=== PATIENT | male | born 1955 | race Two or more races ===

== ENCOUNTER 2023-02-07 07:13 | Inpatient (IN) | payer OTHER, MEDICAID ==
[~2023-02-07] VITALS: Ht 198.1 cm; Wt 98.0 kg
[2023-02-07 08:54] LABS: Urine Bacteria NONE SEEN /hpf (None Seen); Urine Blood 1+ /uL (Negative); Urine Hyaline Cast FEW /lpf (0 - 2); Urine Mucus FEW (None Seen); Urine Specific Gravity 1.026 (1.001-1.035); Urine WBC 4 /hpf (0 - 3)
[2023-02-07 09:17] LABS: Basophils # (auto) 0.1 10 ^3/uL (0-0.2); Basophils % (auto) 1.1 % (0.0-2.0); Eosinophils # (auto) 0.3 10 ^3/uL (0-0.8); Hematocrit 43.7 % (41.0-53.0); Hemoglobin 14.5 g/dL (13.5-17.5); Lymphocytes # (auto) 1.6 10 ^3/uL (0.4-5.4); Lymphocytes % (auto) 16.5 % (10.0-50.0); Mean Corpuscular Hemoglobin 28.4 pg (28.0-32.0); Mean Corpuscular Hgb Conc. 33.1 g/dL (32.0-36.0); Mean Corpuscular Volume 85.9 fL (80.0-100.0); Monocytes # (auto) 1.1 10 ^3/uL (0-1.3); Monocytes % (auto) 11.2 % (0.0-12.0); Neutrophils # (auto) 6.7 10 ^3/uL (1.6-8.6); Neutrophils % (auto) 68.2 % (37.0-80.0); Nucleated Red Blood Cells % 0.1 %; Red Blood Cells 5.09 10^6/uL (4.5-5.90); Red Cell Distribution Width 17.3 % (11.8-14.3); White Blood Cell 9.8 10^3/uL (4.4-10.8)
[2023-02-07 09:25] LABS: Alcohol, Urine < 3.0 mg/dL (0-10); Amphetamine Screen, Urine POSITIVE (NEGATIVE); Barbiturate Scree,Urine NEGATIVE (NEGATIVE); Benzodiazephine Screen, Urine NEGATIVE (NEGATIVE); Cannabinoid Screen, Urine POSITIVE (NEGATIVE)
[2023-02-07 09:34] LABS: INR 1.04 (0.9-1.15); Partial Thromboplastin Time 31.6 SEC (24.5-34.5)
[2023-02-07 09:43] LABS: Cocaine Screen, Urine NEGATIVE (NEGATIVE); Opiate Scree,Urine NEGATIVE (NEGATIVE); Phencyclidine Screen, Urine NEGATIVE (NEGATIVE)
[2023-02-07 09:45] LABS: Albumin 2.6 g/dL (3.4-5.0); Calcium 8.7 mg/dL (8.5-10.1); Potassium 3.1 mmol/L (3.5-5.1)
[2023-02-07 09:48] LABS: BUN/Creatinine Ratio 16.4 (10.0-20.0); Bilirubin, Total 0.8 mg/dL (0.2-1.0); Total Protein 8.5 g/dL (6.4-8.2)
[2023-02-07] MEDS ORDERED: PIPERACILLIN-TAZOB 3.375GM 100 ML IV ONE (10:00)
[2023-02-07] MEDS ORDERED: VANCOMYCIN 1GM/250ML 250 ML IV ONE (10:00)
[2023-02-07] MEDS ORDERED: VANCOMYCIN PER PHARMACY 0 MG IV SCH (12:45)
[2023-02-07] MEDS ORDERED: IPRATROPIUM BROM 0.5 MG/2.5ML INH SOL NEB PRN (12:45)
[2023-02-07] MEDS ORDERED: DOCUSATE SOD 100 MG CAP PO PRN (12:45)
[2023-02-07] MEDS ORDERED: ALBUTEROL SULF 2.5 MG/0.5ML(0.5%) NEB SOLN NEB PRN (12:45)
[2023-02-07] MEDS ORDERED: ONDANSETRON HCL 4 MG/2 ML VIAL IV PRN (12:45)
[2023-02-07] MEDS ORDERED: MORPHINE SULFATE INJ 2 MG/ml SYRG IV PRN (12:45)
[2023-02-07 18:00] VITALS: BP 108/76; PULSE 94; RESP 18; TEMP 97.3; O2SAT 97
[2023-02-07] MEDS: CEFEPIME 2GM/50ML NS 50 ML IV SCH (22:00)
[2023-02-08] MEDS: APIXABAN 5 MG TAB PO SCH ×3 (00:03→22:02)
[2023-02-08] MEDS: CEFEPIME 2GM/50ML NS 50 ML IV SCH ×4 (00:12→22:02)
[2023-02-08] MEDS: VANCOMYCIN 1GM/250ML 250 ML IV SCH ×4 (03:00→18:54)
[2023-02-08] MEDS ORDERED: MAALOX PLUS or MAALOX 30 ML PO ONE (04:15)
[2023-02-08 06:25] LABS: Basophils # (auto) 0.2 10 ^3/uL (0-0.2); Basophils % (auto) 1.5 % (0.0-2.0); Eosinophils # (auto) 0.5 10 ^3/uL (0-0.8); Eosinophils % (auto) 4.6 % (0.0-7.0); Hematocrit 44.9 % (41.0-53.0); Lymphocytes # (auto) 2.1 10 ^3/uL (0.4-5.4); Lymphocytes % (auto) 18.1 % (10.0-50.0); Mean Corpuscular Hemoglobin 28.4 pg (28.0-32.0); Mean Corpuscular Hgb Conc. 33.5 g/dL (32.0-36.0); Monocytes # (auto) 1.2 10 ^3/uL (0-1.3); Monocytes % (auto) 10.4 % (0.0-12.0); Neutrophils # (auto) 7.6 10 ^3/uL (1.6-8.6); Neutrophils % (auto) 65.4 % (37.0-80.0); Nucleated Red Blood Cells % 0.2 %; Red Blood Cells 5.28 10^6/uL (4.5-5.90); Red Cell Distribution Width 17.4 % (11.8-14.3); White Blood Cell 11.6 10^3/uL (4.4-10.8)
[2023-02-08 06:46] LABS: Potassium 3.5 mmol/L (3.5-5.1)
[2023-02-08 06:53] LABS: Albumin 2.9 g/dL (3.4-5.0); BUN/Creatinine Ratio 18.7 (10.0-20.0); Calcium 9.2 mg/dL (8.5-10.1)
[2023-02-08 07:14] LABS: Bilirubin, Total 0.6 mg/dL (0.2-1.0); Total Protein 9.1 g/dL (6.4-8.2)
[2023-02-08 07:25] VITALS: PULSE 72; RESP 16; O2SAT 98
[2023-02-08 09:30] VITALS: O2SAT 95
[2023-02-08] MEDS: POTASSIUM EFFERVESENT TAB 25 MEQ PO SCH (10:35)
[2023-02-08 15:37] VITALS: BP 140/82; PULSE 53; RESP 11; TEMP 97; O2SAT 95
[2023-02-08 15:51] VITALS: BP 124/73; PULSE 104; RESP 17; TEMP 98.1; O2SAT 92
[2023-02-08] MEDS ORDERED: APIX5TAB PO (16:05)
[2023-02-08] MEDS ORDERED: FURO1TAB31 PO (16:06)
[2023-02-08 17:04] VITALS: BP 136/64; PULSE 81; RESP 18; TEMP 98; O2SAT 93
[2023-02-08 20:00] VITALS: BP 103/72; PULSE 83; RESP 18; TEMP 97.6; O2SAT 94
[2023-02-09] VITALS (8 sets, daily range): BP systolic 101–123; BP diastolic 47–79; PULSE 57–94; RESP 16–20; TEMP 97.4–98.8; O2SAT 18–96
[2023-02-09] MEDS: VANCOMYCIN 1GM/250ML 250 ML IV SCH ×3 (02:57→17:51)
[2023-02-09] MEDS: CEFEPIME 2GM/50ML NS 50 ML IV SCH ×3 (06:13→21:30)
[2023-02-09] MEDS: APIXABAN 5 MG TAB PO SCH ×2 (08:32→21:30)
[2023-02-09] MEDS: POTASSIUM EFFERVESENT TAB 25 MEQ PO SCH ×2 (08:32→08:41)
[2023-02-09] MEDS: POTASSIUM CHL 20 Meq TABLET PO SCH (09:56)
[2023-02-09] MEDS: FUROSEMIDE 20 MG TAB PO SCH (09:56)
[2023-02-10 05:00] VITALS: BP 110/73; PULSE 73; RESP 19; TEMP 98.2; O2SAT 96
[2023-02-10] MEDS: CEFEPIME 2GM/50ML NS 50 ML IV SCH ×3 (06:00→21:58)
[2023-02-10 08:00] VITALS: BP 120/87; PULSE 55; RESP 17; TEMP 98.7; O2SAT 97
[2023-02-10 08:53] VITALS: BP 120/82; PULSE 55; RESP 17; TEMP 98.7; O2SAT 97
[2023-02-10] MEDS: APIXABAN 5 MG TAB PO SCH ×2 (10:32→21:34)
[2023-02-10] MEDS: FUROSEMIDE 20 MG TAB PO SCH (10:33)
[2023-02-10] MEDS: POTASSIUM CHL 20 Meq TABLET PO SCH (10:34)
[2023-02-10 14:15] VITALS: BP 115/90; PULSE 61; RESP 17; TEMP 97.6; O2SAT 98
[2023-02-10] MEDS ORDERED: LIDOCAINE 1% (LOCAL ANESTH.) PF 5ml SDV ID ONE (15:00)
[2023-02-10 20:00] VITALS: PULSE 61; RESP 18; O2SAT 98
[2023-02-10] MEDS: SODIUM CHLOR 0.9% PF (SALINE LOCK) 10ML VIAL/SYR IV SCH (21:35)
[2023-02-10 21:59] VITALS: BP 126/79; PULSE 100; RESP 18; TEMP 98.6; O2SAT 95
[2023-02-11 05:00] VITALS: BP 134/89; PULSE 90; RESP 20; TEMP 97.6; O2SAT 98
[2023-02-11] MEDS: CEFEPIME 2GM/50ML NS 50 ML IV SCH (05:10)
[2023-02-11] MEDS: SODIUM CHLOR 0.9% PF (SALINE LOCK) 10ML VIAL/SYR IV SCH ×2 (05:10→21:15)
[2023-02-11 06:46] LABS: BUN/Creatinine Ratio 15.5 (10.0-20.0); Calcium 8.4 mg/dL (8.5-10.1); Potassium 4.7 mmol/L (3.5-5.1)
[2023-02-11 09:00] VITALS: BP 154/85; PULSE 83; RESP 20; TEMP 98.3; O2SAT 98
[2023-02-11] MEDS: NICOTINE 21MG/24 HR TOPICAL PATCH TD SCH (10:00)
[2023-02-11] MEDS: CEFTRIAXONE SODIUM 2 GM in D5W 5% 100 ML IV SCH (12:39)
[2023-02-11] MEDS: APIXABAN 5 MG TAB PO SCH ×2 (12:39→21:14)
[2023-02-11] MEDS: FUROSEMIDE 20 MG TAB PO SCH (12:40)
[2023-02-11] MEDS: POTASSIUM CHL 20 Meq TABLET PO SCH (12:40)
[2023-02-11] MEDS: DAKINS QUARTER STR 0.125% (NaHypochlorite) 473 ML TOPICAL SOL TOP SCH (12:41)
[2023-02-11 13:00] VITALS: BP 119/77; PULSE 91; RESP 18; TEMP 97.8; O2SAT 96
[2023-02-11 17:00] VITALS: BP 140/83; PULSE 73; RESP 20; TEMP 98; O2SAT 96
[2023-02-11 20:00] VITALS: PULSE 89; RESP 18; O2SAT 92
[2023-02-11 20:22] LABS: Basophils # (auto) 0.3 10 ^3/uL (0-0.2); Eosinophils # (auto) 0.7 10 ^3/uL (0-0.8); Eosinophils % (auto) 5.3 % (0.0-7.0); Hematocrit 44.5 % (41.0-53.0); Hemoglobin 14.7 g/dL (13.5-17.5); Lymphocytes # (auto) 1.5 10 ^3/uL (0.4-5.4); Lymphocytes % (auto) 11.7 % (10.0-50.0); Mean Corpuscular Hemoglobin 28.4 pg (28.0-32.0); Mean Corpuscular Hgb Conc. 32.9 g/dL (32.0-36.0); Mean Corpuscular Volume 86.2 fL (80.0-100.0); Monocytes # (auto) 0.8 10 ^3/uL (0-1.3); Monocytes % (auto) 6.3 % (0.0-12.0); Neutrophils # (auto) 9.5 10 ^3/uL (1.6-8.6); Neutrophils % (auto) 74.7 % (37.0-80.0); Nucleated Red Blood Cells % 0.1 %; Red Blood Cells 5.16 10^6/uL (4.5-5.90); Red Cell Distribution Width 17.6 % (11.8-14.3); White Blood Cell 12.7 10^3/uL (4.4-10.8)
[2023-02-11 20:40] LABS: INR 1.09 (0.9-1.15)
[2023-02-11 22:00] VITALS: BP 119/72; PULSE 89; RESP 21; TEMP 98.7; O2SAT 92
[2023-02-12] VITALS (11 sets, daily range): BP systolic 114–151; BP diastolic 71–99; PULSE 61–88; RESP 13–20; TEMP 97.7–98.5; O2SAT 92–100
[2023-02-12] MEDS: DAKINS QUARTER STR 0.125% (NaHypochlorite) 473 ML TOPICAL SOL TOP SCH ×3 (02:05→22:00)
[2023-02-12] MEDS ORDERED: LIDOCAINE 2%HCL (LOCAL ANESTH.) INJ 20ML MDV ONE (08:14)
[2023-02-12] MEDS ORDERED: IODIXANOL 320MG/ML 100ML BTL IV ONE ×2 (08:14→08:57)
[2023-02-12] MEDS ORDERED: SODIUM CHL 0.9% 0 ML ONE (08:35)
[2023-02-12] MEDS ORDERED: MIDAZOLAM HCL 2MG/2ML 2ml VIAL (1mg/ml) ONE (08:35)
[2023-02-12] MEDS ORDERED: ANGIOMAX 250 MG VIAL IV ONE (08:35)
[2023-02-12] MEDS ORDERED: fentaNYL CITRATE 100 MCG/2 ML VL ONE (08:35)
[2023-02-12] MEDS: APIXABAN 5 MG TAB PO SCH ×2 (10:00→22:17)
[2023-02-12] MEDS: POTASSIUM CHL 20 Meq TABLET PO SCH (10:00)
[2023-02-12] MEDS: NICOTINE 21MG/24 HR TOPICAL PATCH TD SCH (10:00)
[2023-02-12] MEDS: FUROSEMIDE 20 MG TAB PO SCH (10:00)
[2023-02-12] MEDS: CEFTRIAXONE SODIUM 2 GM in D5W 5% 100 ML IV SCH (11:23)
[2023-02-12] MEDS: SODIUM CHLOR 0.9% PF (SALINE LOCK) 10ML VIAL/SYR IV SCH ×2 (11:23→23:26)
[2023-02-13 05:00] VITALS: BP 121/75; PULSE 87; RESP 18; TEMP 98.6; O2SAT 96
[2023-02-13 08:00] VITALS: RESP 20
[2023-02-13 08:50] VITALS: BP 123/81; PULSE 77; RESP 18; TEMP 98.6; O2SAT 93
[2023-02-13] MEDS: CEFTRIAXONE SODIUM 2 GM in D5W 5% 100 ML IV SCH (09:00)
[2023-02-13] MEDS: APIXABAN 5 MG TAB PO SCH (09:01)
[2023-02-13] MEDS: SODIUM CHLOR 0.9% PF (SALINE LOCK) 10ML VIAL/SYR IV SCH (09:01)
[2023-02-13] MEDS: POTASSIUM CHL 20 Meq TABLET PO SCH (09:01)
[2023-02-13] MEDS: FUROSEMIDE 20 MG TAB PO SCH (09:02)
[2023-02-13] MEDS: NICOTINE 21MG/24 HR TOPICAL PATCH TD SCH (09:09)
[2023-02-13] MEDS: DAKINS QUARTER STR 0.125% (NaHypochlorite) 473 ML TOPICAL SOL TOP SCH (10:00)
== END 2023-02-13 16:00 | DRG 602 ==
LOC: ER 07:13 → OVERFLOW 12:48 → CENTRAL 02-08 13:14
PROVIDERS: ADMIT Family Medicine; ATTEND Family Medicine
PROC: 02HV33Z Insertion of Infusion Device into Superior Vena Cava, Percutaneous Approach (ICD-10-PCS; principal; 2023-02-10)
PROC: B548ZZA Ultrasonography of Superior Vena Cava, Guidance (ICD-10-PCS; 2023-02-10)
PROC: B41GYZZ Fluoroscopy of Left Lower Extremity Arteries using Other Contrast (ICD-10-PCS; 2023-02-12)
PROC: B41FYZZ Fluoroscopy of Right Lower Extremity Arteries using Other Contrast (ICD-10-PCS; 2023-02-12)
DX: L03.115 Cellulitis of right lower limb (principal); I50.23 Acute on chronic systolic (congestive) heart failure; E44.1 Mild protein-calorie malnutrition; J44.1 Chronic obstructive pulmonary disease with (acute) exacerbation; I82.501 Chronic embolism and thrombosis of unspecified deep veins of right lower extremity; I42.9 Cardiomyopathy, unspecified; Z20.822 Contact with and (suspected) exposure to COVID-19; F12.10 Cannabis abuse, uncomplicated; E87.6 Hypokalemia; F17.210 Nicotine dependence, cigarettes, uncomplicated; F15.10 Other stimulant abuse, uncomplicated; I27.20 Pulmonary hypertension, unspecified; I70.201 Unspecified atherosclerosis of native arteries of extremities, right leg; L97.519 Non-pressure chronic ulcer of other part of right foot with unspecified severity; B18.2 Chronic viral hepatitis C; Z88.1 Allergy status to other antibiotic agents; Z68.24 Body mass index [BMI] 24.0-24.9, adult
CPT/HCPCS: 36415; 36569; 71045; 73590; 73630; 75716; 80048; 80053; 80202; 80307; 81001; 83605; 83880; 85025; 85610; 85652; 85730; 86141; 87040; 87077; 87186; 87205; 87426; 93306; 93925; 93971; 96365; 96367; 97110; 97116; 97163; 97530; 99152; C1769; G0378; J0692; J0696; J2250; J2543; J7060; Q9967

== ENCOUNTER 2023-08-18 19:31 | Inpatient (IN) | payer MEDICARE, OTHER, MEDICAID ==
[~2023-08-18] VITALS: Ht 198.1 cm; Wt 105.5 kg
[~2023-08-18 19:31] MED LIST: APIX5TAB PO; FURO1TAB31 PO
[2023-08-18] MEDS ORDERED: FUROSEMIDE 40 MG/4 ML VIAL IV ONE (20:00)
[2023-08-18 20:20] LABS: Basophils # (auto) 0.1 10 ^3/uL (0-0.2); Basophils % (auto) 1.2 % (0.0-2.0); Eosinophils # (auto) 0.3 10 ^3/uL (0-0.8); Eosinophils % (auto) 3.8 % (0.0-7.0); Hematocrit 41.8 % (41.0-53.0); Hemoglobin 13.2 g/dL (13.5-17.5); Lymphocytes # (auto) 1.7 10 ^3/uL (0.4-5.4); Lymphocytes % (auto) 21.1 % (10.0-50.0); Mean Corpuscular Hemoglobin 27.5 pg (28.0-32.0); Mean Corpuscular Hgb Conc. 31.6 g/dL (32.0-36.0); Mean Corpuscular Volume 87.1 fL (80.0-100.0); Neutrophils % (auto) 61.9 % (37.0-80.0); Nucleated Red Blood Cells % 0.2 %; Red Cell Distribution Width 15.4 % (11.8-14.3)
[2023-08-18 20:30] LABS: Chloride 105 mmol/L (98-107); Potassium 3.8 mmol/L (3.5-5.1); Sodium 136 mmol/L (136-145)
[2023-08-18 20:31] LABS: Anion Gap 4 (5-15); Calcium 9.4 mg/dL (8.5-10.1); Carbon Dioxide 27 mmol/L (20-30)
[2023-08-18 20:36] LABS: BUN/Creatinine Ratio 13.2 (10.0-20.0); Blood Urea Nitrogen 16 mg/dL (9-23); Glucose 95 mg/dL (74-106)
[2023-08-18] MEDS ORDERED: NITROGLYCERIN 0.4 MG SL TAB SL PRN (21:30)
[2023-08-18] MEDS ORDERED: ONDANSETRON HCL 4 MG/2 ML VIAL IV PRN (21:30)
[2023-08-18] MEDS ORDERED: MORPHINE SULFATE INJ 2 MG/ml SYRG IV PRN (21:30)
[2023-08-18] MEDS ORDERED: ATORVASTATIN 20 MG TAB PO SCH (22:00)
[2023-08-18] MEDS ORDERED: APIXABAN 5 MG TAB PO SCH (22:00)
[2023-08-18 22:11] LABS: Urine Bacteria FEW /hpf (None Seen); Urine Blood TRACE /uL (Negative); Urine Clarity Clear (Clear); Urine Color Yellow (Yellow); Urine Protein, UAD 2+ (Negative); Urine Specific Gravity 1.024 (1.001-1.035); Urine Sperm PRESENT /hpf (None Seen); Urine WBC 2 /hpf (0 - 3)
[2023-08-18 22:17] LABS: INR 1.16 (0.9-1.15); Partial Thromboplastin Time 33.1 SEC (24.5-34.5); Prothrombin Time 12.1 sec (9.3-11.8)
[2023-08-18 22:21] LABS: Amphetamine Screen, Urine Pos (NEGATIVE); Barbiturate Scree,Urine Neg (NEGATIVE); Benzodiazephine Screen, Urine Neg (NEGATIVE); Cannabinoid Screen, Urine Pos (NEGATIVE); Cocaine Screen, Urine Neg (NEGATIVE); Opiate Scree,Urine Neg (NEGATIVE); Phencyclidine Screen, Urine Neg (NEGATIVE)
[2023-08-19] MEDS ORDERED: FUROSEMIDE 20 MG/2 ML VIAL IV SCH (06:00)
[2023-08-19] MEDS: ASPirin 81 mg TAB PO SCH ×2 (09:00→10:00)
[2023-08-19] MEDS: FUROSEMIDE 20 MG/2 ML VIAL IV SCH ×2 (09:29→21:47)
[2023-08-19 09:34] LABS: Basophils # (auto) 0.1 10 ^3/uL (0-0.2); Basophils % (auto) 1.9 % (0.0-2.0); Eosinophils # (auto) 0.3 10 ^3/uL (0-0.8); Eosinophils % (auto) 3.8 % (0.0-7.0); Hematocrit 41.9 % (41.0-53.0); Hemoglobin 13.3 g/dL (13.5-17.5); Lymphocytes # (auto) 1.9 10 ^3/uL (0.4-5.4); Lymphocytes % (auto) 24.8 % (10.0-50.0); Mean Corpuscular Hemoglobin 27.6 pg (28.0-32.0); Mean Corpuscular Hgb Conc. 31.8 g/dL (32.0-36.0); Mean Corpuscular Volume 86.9 fL (80.0-100.0); Monocytes # (auto) 0.9 10 ^3/uL (0-1.3); Monocytes % (auto) 11.6 % (0.0-12.0); Neutrophils # (auto) 4.5 10 ^3/uL (1.6-8.6); Neutrophils % (auto) 57.9 % (37.0-80.0); Nucleated Red Blood Cells % 0.2 %; Red Blood Cells 4.82 10^6/uL (4.5-5.90); Red Cell Distribution Width 15.1 % (11.8-14.3); White Blood Cell 7.8 10^3/uL (4.4-10.8)
[2023-08-19 09:39] LABS: Chloride 104 mmol/L (98-107); Potassium 4.1 mmol/L (3.5-5.1); Sodium 135 mmol/L (136-145)
[2023-08-19 09:40] LABS: Anion Gap 3 (5-15); Carbon Dioxide 28 mmol/L (20-30)
[2023-08-19 09:41] LABS: Calcium 9.3 mg/dL (8.5-10.1)
[2023-08-19 09:45] LABS: Glucose 117 mg/dL (74-106)
[2023-08-19 09:46] LABS: Blood Urea Nitrogen 11 mg/dL (9-23)
[2023-08-19 09:52] LABS: Triglycerides 45 mg/dL (< 150)
[2023-08-19 09:53] LABS: LDL Cholesterol 72 mg/dL (< 100)
[2023-08-19 09:54] LABS: Cholesterol 117 mg/dL (< 200); HDL Cholesterol 35 mg/dL (40-59)
[2023-08-19] MEDS ORDERED: ASPirin 81 mg TAB PO SCH (10:00)
[2023-08-19] MEDS ORDERED: ENOXAPARIN SOD 80 MG/0.8ML SYRINGE SC SCH (10:00)
[2023-08-19 10:08] LABS: Magnesium 1.9 mg/dL (1.6-2.6)
[2023-08-19] MEDS: APIXABAN 5 MG TAB PO SCH ×2 (10:30→21:47)
[2023-08-19] MEDS ORDERED: IOHEXOL 350 MG/ML 100ML IJ ONE (10:53)
[2023-08-19] MEDS: METOPROLOL SUCCINATE XL 50 MG TAB PO SCH (12:18)
[2023-08-19 18:23] VITALS: BP 115/77; PULSE 94; PULSE 96; RESP 18; TEMP 98
[2023-08-19 20:00] VITALS: PULSE 80; PULSE 92; RESP 16
[2023-08-19] MEDS: SACUBITRIL-VALSARTAN 24mg/26mg TAB PO SCH (21:46)
[2023-08-19] MEDS: ATORVASTATIN 20 MG TAB PO SCH (21:47)
[2023-08-19 22:00] VITALS: BP 145/68; PULSE 84; RESP 19; TEMP 98.4; O2SAT 98
[2023-08-20] VITALS (13 sets, daily range): BP systolic 116–145; BP diastolic 67–84; PULSE 54–106; RESP 16–22; TEMP 97.4–98.4; O2SAT 94–100
[2023-08-20] MEDS ORDERED: ALBUTEROL SULF 2.5 MG/0.5ML(0.5%) NEB SOLN NEB PRN (02:45)
[2023-08-20 09:26] LABS: Basophils # (auto) 0.1 10 ^3/uL (0-0.2); Basophils % (auto) 1.1 % (0.0-2.0); Eosinophils # (auto) 0.3 10 ^3/uL (0-0.8); Eosinophils % (auto) 4.3 % (0.0-7.0); Hematocrit 40.6 % (41.0-53.0); Hemoglobin 12.9 g/dL (13.5-17.5); Lymphocytes # (auto) 1.7 10 ^3/uL (0.4-5.4); Lymphocytes % (auto) 22.7 % (10.0-50.0); Mean Corpuscular Hemoglobin 27.8 pg (28.0-32.0); Mean Corpuscular Hgb Conc. 31.8 g/dL (32.0-36.0); Mean Corpuscular Volume 87.3 fL (80.0-100.0); Monocytes # (auto) 0.8 10 ^3/uL (0-1.3); Monocytes % (auto) 10.7 % (0.0-12.0); Neutrophils # (auto) 4.5 10 ^3/uL (1.6-8.6); Neutrophils % (auto) 61.2 % (37.0-80.0); Nucleated Red Blood Cells % 0.1 %; Red Blood Cells 4.65 10^6/uL (4.5-5.90); Red Cell Distribution Width 15.7 % (11.8-14.3); White Blood Cell 7.4 10^3/uL (4.4-10.8)
[2023-08-20] MEDS: FUROSEMIDE 20 MG/2 ML VIAL IV SCH ×3 (09:29→22:25)
[2023-08-20] MEDS: ASPirin 81 mg TAB PO SCH (09:29)
[2023-08-20] MEDS: SACUBITRIL-VALSARTAN 24mg/26mg TAB PO SCH ×2 (09:30→22:25)
[2023-08-20] MEDS: APIXABAN 5 MG TAB PO SCH ×2 (09:30→22:25)
[2023-08-20] MEDS: METOPROLOL SUCCINATE XL 50 MG TAB PO SCH (09:30)
[2023-08-20 09:39] LABS: Chloride 103 mmol/L (98-107); Potassium 4.1 mmol/L (3.5-5.1); Sodium 133 mmol/L (136-145)
[2023-08-20 09:40] LABS: Anion Gap 6 (5-15); Calcium 8.9 mg/dL (8.5-10.1); Carbon Dioxide 24 mmol/L (20-30)
[2023-08-20 09:45] LABS: BUN/Creatinine Ratio 9.9 (10.0-20.0); Blood Urea Nitrogen 11 mg/dL (9-23); Glucose 185 mg/dL (74-106)
[2023-08-20] MEDS: SPIRONOLACTONE 25 MG TAB PO SCH (10:40)
[2023-08-20] MEDS: EMPAGLIFLOZIN 10 MG TAB PO SCH (10:40)
[2023-08-20] MEDS: ATORVASTATIN 20 MG TAB PO SCH (22:25)
[2023-08-21] VITALS (8 sets, daily range): BP systolic 111–131; BP diastolic 76–82; PULSE 69–101; RESP 17–20; TEMP 97.9–98.4; O2SAT 92–97
[2023-08-21] MEDS: FUROSEMIDE 20 MG/2 ML VIAL IV SCH ×3 (05:36→21:40)
[2023-08-21] MEDS: SACUBITRIL-VALSARTAN 24mg/26mg TAB PO SCH ×2 (11:35→21:39)
[2023-08-21] MEDS: ASPirin 81 mg TAB PO SCH (11:35)
[2023-08-21] MEDS: SPIRONOLACTONE 25 MG TAB PO SCH (11:36)
[2023-08-21] MEDS: APIXABAN 5 MG TAB PO SCH ×2 (11:36→21:39)
[2023-08-21] MEDS: METOPROLOL SUCCINATE XL 50 MG TAB PO SCH (11:37)
[2023-08-21] MEDS: EMPAGLIFLOZIN 10 MG TAB PO SCH (11:38)
[2023-08-21 14:08] LABS: Basophils # (auto) 0.1 10 ^3/uL (0-0.2); Basophils % (auto) 1.2 % (0.0-2.0); Eosinophils # (auto) 0.3 10 ^3/uL (0-0.8); Hematocrit 43.8 % (41.0-53.0); Hemoglobin 14.2 g/dL (13.5-17.5); Lymphocytes % (auto) 25.1 % (10.0-50.0); Mean Corpuscular Hemoglobin 27.7 pg (28.0-32.0); Mean Corpuscular Hgb Conc. 32.3 g/dL (32.0-36.0); Mean Corpuscular Volume 85.6 fL (80.0-100.0); Monocytes % (auto) 12.9 % (0.0-12.0); Neutrophils # (auto) 4.5 10 ^3/uL (1.6-8.6); Neutrophils % (auto) 56.8 % (37.0-80.0); Nucleated Red Blood Cells % 0.1 %; Red Blood Cells 5.12 10^6/uL (4.5-5.90); Red Cell Distribution Width 14.8 % (11.8-14.3)
[2023-08-21 14:16] LABS: Chloride 102 mmol/L (98-107); Potassium 3.9 mmol/L (3.5-5.1); Sodium 136 mmol/L (136-145)
[2023-08-21 14:17] LABS: Anion Gap 5 (5-15); Calcium 9.2 mg/dL (8.5-10.1); Carbon Dioxide 29 mmol/L (20-30)
[2023-08-21 14:22] LABS: Blood Urea Nitrogen 16 mg/dL (9-23); Glucose 124 mg/dL (74-106)
[2023-08-21] MEDS: ATORVASTATIN 20 MG TAB PO SCH (21:40)
[2023-08-22] VITALS (11 sets, daily range): BP systolic 97–118; BP diastolic 55–80; PULSE 53–113; RESP 17–20; TEMP 97.4–98.2; O2SAT 91–95
[2023-08-22] MEDS: FUROSEMIDE 20 MG/2 ML VIAL IV SCH ×4 (06:00→22:00)
[2023-08-22] MEDS: ASPirin 81 mg TAB PO SCH (09:21)
[2023-08-22] MEDS: METOPROLOL SUCCINATE XL 50 MG TAB PO SCH (09:22)
[2023-08-22] MEDS: SPIRONOLACTONE 25 MG TAB PO SCH (09:22)
[2023-08-22] MEDS: APIXABAN 5 MG TAB PO SCH ×2 (09:22→22:22)
[2023-08-22] MEDS: SACUBITRIL-VALSARTAN 24mg/26mg TAB PO SCH ×2 (09:22→22:26)
[2023-08-22] MEDS: EMPAGLIFLOZIN 10 MG TAB PO SCH (09:22)
[2023-08-22] MEDS: ATORVASTATIN 20 MG TAB PO SCH (22:22)
[2023-08-23] VITALS (7 sets, daily range): BP systolic 105–145; BP diastolic 77–80; PULSE 71–101; RESP 18–20; TEMP 97.4–98; O2SAT 91–95
[2023-08-23] MEDS: FUROSEMIDE 20 MG/2 ML VIAL IV SCH ×2 (06:02→14:00)
[2023-08-23 06:31] LABS: Basophils # (auto) 0.1 10 ^3/uL (0-0.2); Basophils % (auto) 1.4 % (0.0-2.0); Eosinophils # (auto) 0.3 10 ^3/uL (0-0.8); Eosinophils % (auto) 3.2 % (0.0-7.0); Hematocrit 48.4 % (41.0-53.0); Hemoglobin 15.1 g/dL (13.5-17.5); Lymphocytes # (auto) 2.1 10 ^3/uL (0.4-5.4); Lymphocytes % (auto) 23.6 % (10.0-50.0); Mean Corpuscular Hemoglobin 27.9 pg (28.0-32.0); Mean Corpuscular Hgb Conc. 31.1 g/dL (32.0-36.0); Mean Corpuscular Volume 89.6 fL (80.0-100.0); Monocytes # (auto) 1.1 10 ^3/uL (0-1.3); Monocytes % (auto) 11.8 % (0.0-12.0); Neutrophils # (auto) 5.4 10 ^3/uL (1.6-8.6); Nucleated Red Blood Cells % 0.2 %; Red Cell Distribution Width 16.2 % (11.8-14.3)
[2023-08-23] MEDS: ASPirin 81 mg TAB PO SCH (09:36)
[2023-08-23] MEDS: APIXABAN 5 MG TAB PO SCH (09:37)
[2023-08-23] MEDS: SPIRONOLACTONE 25 MG TAB PO SCH (09:37)
[2023-08-23] MEDS: EMPAGLIFLOZIN 10 MG TAB PO SCH (09:37)
[2023-08-23] MEDS: METOPROLOL SUCCINATE XL 50 MG TAB PO SCH (09:37)
[2023-08-23] MEDS: SACUBITRIL-VALSARTAN 24mg/26mg TAB PO SCH (09:38)
[2023-08-23] MEDS ORDERED: ATO40T PO (12:51)
[2023-08-23] MEDS ORDERED: SACU1TAB PO (12:51)
[2023-08-23] MEDS ORDERED: APIX5TAB PO (12:51)
[2023-08-23] MEDS ORDERED: EMPA1TAB PO (12:51)
[2023-08-23] MEDS ORDERED: SPIR25TA PO (12:51)
[2023-08-23] MEDS ORDERED: METO-6 PO (12:51)
[2023-08-23 13:49] LABS: Chloride 101 mmol/L (98-107); Potassium 3.7 mmol/L (3.5-5.1); Sodium 136 mmol/L (136-145)
[2023-08-23 13:50] LABS: Anion Gap 4 (5-15); Calcium 9.2 mg/dL (8.5-10.1); Carbon Dioxide 31 mmol/L (20-30)
[2023-08-23 13:55] LABS: BUN/Creatinine Ratio 13.8 (10.0-20.0); Blood Urea Nitrogen 17 mg/dL (9-23); Glucose 88 mg/dL (74-106)
[2023-08-23] MEDS ORDERED: ALB5IS NEB (14:49)
[2023-08-23] MEDS ORDERED: FURO40TA4 PO (14:54)
== END 2023-08-23 17:30 | disposition home or self-care (01) | DRG 280 ==
LOC: ER 19:31 → TELE 21:41 → TELE-EAST 08-19 18:14
PROVIDERS: ADMIT Internal Medicine; ATTEND Emergency Medicine
DX: I11.0 Hypertensive heart disease with heart failure (principal); I26.99 Other pulmonary embolism without acute cor pulmonale; I21.A1 Myocardial infarction type 2; J96.20 Acute and chronic respiratory failure, unspecified whether with hypoxia or hypercapnia; I50.23 Acute on chronic systolic (congestive) heart failure; I82.401 Acute embolism and thrombosis of unspecified deep veins of right lower extremity; I48.91 Unspecified atrial fibrillation; N50.89 Other specified disorders of the male genital organs; F15.90 Other stimulant use, unspecified, uncomplicated; F17.210 Nicotine dependence, cigarettes, uncomplicated; E66.9 Obesity, unspecified; Z86.718 Personal history of other venous thrombosis and embolism; Z79.01 Long term (current) use of anticoagulants; Z88.1 Allergy status to other antibiotic agents; Z79.899 Other long term (current) drug therapy; Z91.199 Patient's noncompliance with other medical treatment and regimen due to unspecified reason; Z68.26 Body mass index [BMI] 26.0-26.9, adult
CPT/HCPCS: 36415; 71045; 71275; 80048; 80061; 80307; 81001; 82306; 83036; 83735; 83880; 84443; 84484; 85025; 85379; 85610; 85730; 93005; 93306; 93970; 96374; 96376; 97110; 97116; 97163; 97530; 99291; G0378

== ENCOUNTER 2025-04-19 00:01 | Inpatient (IN) | payer OTHER, MEDICAID ==
[~2025-04-19] VITALS: Ht 198.1 cm; Wt 96.5 kg
[2025-04-19] VITALS (67 sets, daily range): BP systolic 78–135; BP diastolic 31–92; PULSE 97–133; RESP 12–35; TEMP 97.7–97.9; O2SAT 77–100
[~2025-04-19 00:01] MED LIST changes: +ALB5IS NEB; +ATOR-507 PO; +EMPA1TAB PO; -FURO1TAB31 PO; +FURO40TA4 PO; +METO-6 PO; +SACU1TAB PO; +SPIR25TA PO
--- NOTE | 2025-04-19 00:41 | ED.PDOC ---
SOB-HPI HPI Comments 69-year-old male who came to ER for shortness a breath. Patient does have history of COPD, congestive heart failure, DVT, AFib, polysubstance abuse. Claims he has been short of breath all the time, but has progressively worsened in the past 2 days. Worsening bipedal edema. Was saturating 71% on room air. Blood pressure of 66/40 mm Hg Chief Complaint: Shortness of Breath Time Seen by MD: 00:41 Primary Care Provider: DAYLIN Reviewed notes: Nurses Notes Information Source: Patient Mode of Arrival: EMS Severity: Moderate Timing: Days Duration: Intermittent History of: COPD, CHF Past Medical History PAST MEDICAL HISTORY: CHF, COPD, Liver Past Medical History (Other): DVT right leg Surgical History: Denies all surgeries Family History Family History: Family hx of Cancer Social History Smoker: Cigarettes, Less Than 1 Pack/Day Alcohol: Denies ETOH Use Drugs: Marijuana, Methamphetamine Lives In: Home Constitutional: denies: chills, diaphoresis, fatigue, fever, malaise, sweats, weakness, others EENTM: denies: blurred vision, double vision, ear bleeding, ear discharge, ear drainage, ear pain, ear ringing, eye pain, eye redness, hearing loss, mouth pain, mouth swelling, nasal discharge, nose bleeding, nose congestion, nose pain, photophobia, tearing, throat pain, throat swelling, voice changes, others Respiratory: reports: SOB at rest, shortness of breath, SOB with excertion; denies: cough, hemoptysis, orthopnea, stridor, wheezing, others Cardiovascular: reports: edema; denies: chest pain, dizzy spells, diaphoresis, Dyspnea on exertion, irregular heart beat, left arm pain, lightheadedness, palpitations, PND, syncope, others Gastrointestinal: denies: abdomen distended, abdominal pain, blood streaked bowels, constipated, diarrhea, dysphagia, difficulty swallowing, hematemesis, melena, nausea, poor appetite, poor fluid intake, rectal bleeding, rectal pain, vomiting, others Genitourinary: denies: burning, dysuria, flank pain, frequency, hematuria, incontinence, penile discharge, penile sore, pain, testicle pain, testicle swelling, urgency, others Neurological: denies: dizziness, fainting, headache, left sided numbness, left sided weakness, numbness, paresthesia, pre-existing deficit, right sided numbness, right sided weakness, seizure, speech problems, tingling, tremors, weakness, others Musculoskeletal: denies: back pain, gout, joint pain, joint swelling, muscle pain, muscle stiffness, neck pain, others Integumetry: denies: bruises, change in color, change in hair/nails, dryness, laceration, lesions, lumps, rash, wounds, others Allergic/Immunocompromised: denies: Difficulty Healing, Frequent Infections, Hives, Itching, others Hematologic/Lymphatic: denies: anemia, blood clots, easy bleeding, easy bruising, swollen glands, others Endocrine: denies: excessive hunger, excessive sweating, excessive thirst, excessive urination, flushing, intolerance to cold, intolerance to heat, unexplained weight gain, unexplained weight loss, others Psychiatric: denies: anxiety, bipolar disorder, depression, hopeless, panic disorder, schizophrenia, sleepless, suicidal, others Physical Exam General Appearance: No Apparent Distress, Normal HEENT: Normal ENT Inspection, Pharynx Normal, TMs Normal Neck: Full Range of Motion, Non-Tender, Normal, Normal Inspection Respiratory: Chest Non-Tender, Lungs Clear, No Accessory Muscle Use, No Respiratory Distress, Normal Breath Sounds Cardiovascular: No Edema, No JVD, No Murmur, No Gallop, Normal Peripheral Pulses, Regular Rate/Rhythm Breast Exam: Deferred Gastrointestinal: No Organomegaly, Non Tender, No Pulsatile Mass, Normal Bowel Sounds, Soft Genitalia: Deferred Pelvic: Deferred Rectal: Deferred Extremities: No calf tenderness, Normal capillary refill, Normal inspection, Normal range of motion, Non-tender, No pedal edema Musculoskeletal : Apperance: Normal Neurologic: Alert, digital recruiter II-XII nml as Tested, No Motor Deficits, Normal Affect, Normal Mood, No Sensory Deficits Cerebellar Function: Normal Reflexes: Normal Skin: Dry, Normal Color, Warm Lymphatic: No Adenopathy EKG EKG : Pulse Rate (adult): 115 Cardiac Rhythm: Afib Was a procedure done? Was a procedure done?: No Differential Dx Differential Diagnosis: Bronchitis, CHF, COPD, Myocardial infarction, Pneumoni a, Respiratory Distress X-Ray, Labs, Meds, VS Vital Signs Date Time Temp Pulse Resp B/P (MAP) Pulse Ox O2 Delivery O2 Flow Rate FiO2 04/19/25 00:41 115 04/19/25 00:38 16 92 Nasal Cannula* 5 40 04/19/25 00:22 98.1 116 17 69/44 (52) 99 98.1 04/19/25 00:07 98.4 110 30 123/49 96 98.4 04/19/25 00:01 115 Lab Test 04/19/25 01:46 04/19/25 00:27 Range/Units Troponin I High Sensitivity Pending 192 *H </=54 ng/L White Blood Count 9.2 4.4-10.8 10^3/uL Red Blood Count 4.82 4.5-5.90 10^6/uL Hemoglobin 13.1 L 13.5-17.5 g/dL Hematocrit 39.3 L 41.0-53.0 % Mean Corpuscular Volume 81.5 80.0-100.0 fL Mean Corpuscular Hemoglobin 27.1 L 28.0-32.0 pg Mean Corpuscular Hemoglobin Concent 33.2 32.0-36.0 g/dL Red Cell Distribution Width 17.1 H 11.8-14.3 % Platelet Count 145 140-450 10^3/uL Mean Platelet Volume 7.8 6.9-10.8 fL Neutrophils (%) (Auto) 90.5 H 37.0-80.0 % Lymphocytes (%) (Auto) 3.2 L 10.0-50.0 % Monocytes (%) (Auto) 4.4 0.0-12.0 % Eosinophils (%) (Auto) 1.7 0.0-7.0 % Basophils (%) (Auto) 0.2 0.0-2.0 % Neutrophils # (Auto) 8.3 1.6-8.6 10 ^3/uL Lymphocytes # (Auto) 0.3 L 0.4-5.4 10 ^3/uL Monocytes # (Auto) 0.4 0-1.3 10 ^3/uL Eosinophils # (Auto) 0.2 0-0.8 10 ^3/uL Basophils # (Auto) 0 0-0.2 10 ^3/uL Nucleated Red Blood Cells 0.4 % Prothrombin Time 15.6 H 9.3-11.8 sec Prothrombin Time INR 1.54 H 0.9-1.15 Activated Partial Thromboplast Time 44.3 H 24.5-34.5 SEC Sodium Level 129 L 136-145 mmol/L Potassium Level 4.6 3.5-5.1 mmol/L Chloride Level 100 98-107 mmol/L Carbon Dioxide Level 22 20-31 mmol/L Anion Gap 7 5-15 Blood Urea Nitrogen 40 H 9-23 mg/dL Creatinine 1.99 H 0.700-1.30 mg/dL Glomerular Filtration Rate Calc 36 >90 mL/min BUN/Creatinine Ratio 20.1 H 10.0-20.0 Serum Glucose 106 74-106 mg/dL Lactic Acid Level 2.0 0.4-2.0 mmol/L Calcium Level 8.3 L 8.7-10.4 mg/dL Magnesium Level 1.8 1.6-2.6 mg/dL Total Bilirubin 4.9 H 0.2-1.0 mg/dL Aspartate Amino Transferase (AST) 64 H 13-40 U/L Alanine Aminotransferase (ALT) 58 H 7-40 U/L Alkaline Phosphatase 170 H 46-116 U/L B-Type Natriuretic Peptide 1075.48 0-100 pg/mL Total Protein 7.4 5.7-8.2 g/dL Albumin 2.6 L 3.2-4.8 g/dL Current Medications Medications (Trade) Dose Ordered Sig/Ángel Route Start Time Stop Time Status Last Admin Sodium Chloride 500 ml @ 500 mls/hr Q1H ONCE IV 04/19/25 00:45 04/19/25 01:44 DC 04/19/25 00:45 Piperacillin Sod/ Tazobactam Sod 100 ml @ 100 mls/hr ONCE ONCE IV 04/19/25 00:45 04/19/25 01:44 DC 04/19/25 01:05 Aspirin 81 mg ONCE ONCE PO 04/19/25 01:15 04/19/25 01:16 DC 04/19/25 01:05 Sodium Chloride 500 ml @ 500 mls/hr Q1H ONCE IV 04/19/25 01:30 04/19/25 02:29 DC 04/19/25 01:34 Time of 1ST Reevaluation: 00:37 Reevaluation 1ST: Unchanged Patient Education/Counseling: Diagnosis, Treatment Family Education/Counseling: No Family Present SEPSIS Sepsis Screen Date sepsis recognized/suspect: Apr 19, 2025 Time Sepsis recognized/suspect: 001 Recent Procedure: No On Antibiotic Therapy: No Respiratory Rate >20: Yes Heart Rate >90: Yes Temp<36 C (96.8 F) or >38.3 C: No SBP <90 or MAP <65 mmHG: No New Acute Mental Status Change: No Is the patient on CPAP, BIPAP,: No Physician Orders Electrocardigram (04/19/25 00:07) Troponin-I Hs (04/19/25 01:07) Troponin-I Hs (04/19/25 03:07) Chest Xray 1 View (04/19/25 00:07) Blood Culture (04/19/25 00:33) Norepinephrine 8 Mg/250ml Kit (Levophed) (04/19/25 01:30) Vital Signs Date Time Temp Pulse Resp B/P (MAP) Pulse Ox O2 Delivery O2 Flow Rate FiO2 04/19/25 00:41 115 04/19/25 00:38 16 92 Nasal Cannula* 5 40 04/19/25 00:22 98.1 116 17 69/44 (52) 99 98.1 04/19/25 00:07 98.4 110 30 123/49 96 98.4 04/19/25 00:01 115 Laboratory Tests Test 04/19/25 00:27 Lactic Acid Level 2.0 mmol/L (0.4-2.0) White Blood Count 9.2 10^3/uL (4.4-10.8) Medications Medications Dose Ordered Sig/Ángel Route Start Time Stop Time Status Last Admin Dose Admin Aspirin 81 mg ONCE ONCE PO 04/19/25 01:15 04/19/25 01:16 DC 04/19/25 01:05 Piperacillin Sod/ Tazobactam Sod 100 ml @ 100 mls/hr ONCE ONCE IV 04/19/25 00:45 04/19/25 01:44 DC 04/19/25 01:05 Sodium Chloride 500 ml @ 500 mls/hr Q1H ONCE IV 04/19/25 00:45 04/19/25 01:44 DC 04/19/25 00:45 Sodium Chloride 500 ml @ 500 mls/hr Q1H ONCE IV 04/19/25 01:30 04/19/25 02:29 DC 04/19/25 01:34 Departure 1 Departure Time of Disposition: 02:33 Impression: Primary Impression: Cardiomegaly Additional Impressions: Polysubstance abuse Hypotension Acute renal injury Hyperbilirubinemia Disposition: 01 HOME / SELF CARE / HOMELESS Condition: Stable Discharged With: Self Comments 61-year-old male with generalized weakness and shortness of breath. Blood pressure noted to be low. White blood cell count normal at 9. Patient is hyponatremic 129. Also acute renal injury with BUN creatinine high at 40 and 1.99. Also total bilirubin elevated at 4.9. AST and ALT are slightly elevated 64 and 58. Alk-phos is elevated 170. Troponin is elevated at 192. Lactic acid is normal at 2.0. Patient was given IV fluids and we temporarily started Levophed. Patient will need to be admitted for acute renal injury and hypotension and dehydration and hyperbilirubinemia Critical Care Note Critical Care Time?: Yes (35 min-critical care time only) Critical care comment: Shortness of breath Total critical care time: Approximately 36 minutes Due to a high probability of clinically significant, life threatening deterioration, the patient required my highest level of preparedness to intervene emergently and I personally spent this critical care time directly and personally managing the patient. This critical care time included obtaining a history; examining the patient; pulse oximetry; ordering and review of studies; arranging urgent treatment with development of a management plan; evaluation of patient's response to treatment; frequent reassessment; and, discussions with other providers. This critical care time was performed to assess and manage the high probability of imminent, life-threatening deterioration that could result in multi-organ failure. It was exclusive of separately billable procedures and treating other patients. Stability Stability form required: No Heart Score Heart Score: Heart Score Response (Comments) Value History Moderate Suspicious [address]-Deviation 2 Age >65 2 Risk Factors >3 or Hx ASHD 2 Troponin Normal limit 0 Total 7 I personally scribed for JEFFERSON PATTON MD ([email or web address]) on 04/19/25 at 00:41. Electronically submitted by Cresencio Michael ([email or web address]). JEFFERSON PATTON MD Apr 19, 2025 00:41
[2025-04-19 00:45] LABS: Hematocrit 39.3 % (41.0-53.0); Hemoglobin 13.1 g/dL (13.5-17.5); Mean Corpuscular Hemoglobin 27.1 pg (28.0-32.0); Mean Corpuscular Volume 81.5 fL (80.0-100.0); Nucleated Red Blood Cells % 0.4 %
[2025-04-19] MEDS: SODIUM CHLORIDE 0.9% 500 ML IV ONE ×2 (00:45→01:34)
--- NOTE | 2025-04-19 00:49 | DVH ---
CHEST RADIOGRAPH Indication: SOB Technique: Single frontal view of the chest was obtained COMPARISON: XY CHEST PORTABLE on DOS: 08/18/23, XY CHEST PORTABLE on DOS: 02/10/23, XR CHEST 1 VIEW on DOS: 02/04/23 FINDINGS: Lines and Tubes: None Lungs: Clear Pleura: No effusion. No pneumothorax. Cardiomediastinal contours: Cardiomegaly. Bones: Unremarkable IMPRESSION: 1. Cardiomegaly.
[2025-04-19 00:56] LABS: Carbon Dioxide 22 mmol/L (20-31)
[2025-04-19 01:00] LABS: Calcium 8.3 mg/dL (8.7-10.4)
[2025-04-19 01:01] LABS: BUN/Creatinine Ratio 20.1 (10.0-20.0); Magnesium 1.8 mg/dL (1.6-2.6); Total Protein 7.4 g/dL (5.7-8.2)
[2025-04-19 01:03] LABS: Alanine Aminotransferase 58 U/L (7-40); Albumin 2.6 g/dL (3.2-4.8); Alkaline Phosphatase 170 U/L (46-116); Blood Urea Nitrogen 40 mg/dL (9-23); Glucose 106 mg/dL (74-106)
[2025-04-19 01:04] LABS: Bilirubin, Total 4.9 mg/dL (0.2-1.0)
[2025-04-19] MEDS: PIPERACILLIN-TAZOB 3.375GM 100 ML IV ONE (01:05)
[2025-04-19 01:07] LABS: INR 1.54 (0.9-1.15); Partial Thromboplastin Time 44.3 SEC (24.5-34.5); Prothrombin Time 15.6 sec (9.3-11.8)
[2025-04-19 01:49] LABS: Anion Gap 7 (5-15); Chloride 100 mmol/L (98-107); Potassium 4.6 mmol/L (3.5-5.1)
[2025-04-19 01:59] LABS: Sodium 129 mmol/L (136-145)
[2025-04-19] MEDS: NOREPINEPHRINE 8 MG/250ML KIT 250 ML IV SCH (02:00)
[2025-04-19] MEDS ORDERED: ACETAMINOPHEN 325 MG TAB PO PRN (02:45)
[2025-04-19] MEDS ORDERED: MORPHINE SULFATE INJ 2 MG/ml SYRG IV PRN (02:45)
[2025-04-19] MEDS ORDERED: DOXYCYCLINE 100MG/100ML 100 ML IV SCH (02:45)
--- NOTE | 2025-04-19 02:47 | DVHHPRES ---
History of Present Illness Resident Creating Document: MERISSA DESIR History of Present Illness Fredo Salcedo is a 69-year-old male patient who presents to the ED only with chief complaint of progressive dyspnea from functional class II to functional class IV , lower limb swelling and generalized weakness which have progressively in the last week before his admission. Patient was status home hospice, but decided to revoke and be evaluated in the emergency department. Patient reports last use of methamphetamine two weeks ago Denies any other associated symptoms. 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 Current tobacco abuse (approximately 40 pack-year history of smoking), consumes marijuana, occasional methamphetamine. Denies current alcohol and other drug abuse. Allergies: Tetracycline, tomatoes) Home medication: Empagliflozin, spironolactone, Entresto, apixaban, metoprolol, albuterol, furosemide, atorvastatin Patient seen and examined at bedside. Due to hypotension in suspecting she had some PE with hemodynamic decompensation, placed Central line in right internal jugular and ordered stat angio CT of chest to ruled out PE (was negative for PE). Interpreted as cardiogenic shock, currently on ICU status due to inotropic and IV vasopressors. Past Medical History Per HPI Past Surgical History Per HPI Family History Per HPI Past Social History Per HPI Review of Systems Review of Systems Per HPI Allergies: Coded Allergies: Tetracycline (Verified Allergy, Unknown, 02/07/23) Tomato (Verified Allergy, Unknown, 08/20/23) Medications Current Medications Medications Dose Ordered Sig/Ángel Route Start Time Stop Time Status Last Admin Dose Admin Norepinephrine Bitartrate 250 ml @ 3.75 mls/hr Q24H IV 04/19/25 01:30 Acetaminophen 325 mg Q4HP PRN PO 04/19/25 02:45 UNV Morphine Sulfate 2 mg Q4HPRN PRN IV 04/19/25 02:45 UNV Enoxaparin Sodium 40 mg DAILY SC 04/19/25 10:00 UNV Exam Vital Signs Vital Signs Date Time Temp Pulse Resp B/P (MAP) Pulse Ox O2 Delivery O2 Flow Rate FiO2 04/19/25 00:41 115 04/19/25 00:38 16 92 Nasal Cannula* 5 40 04/19/25 00:22 98.1 69/44 (52) 98.1 Exam Patient lying in bed, in mild acute distress General: Lucid, afebrile, mucosae are moist Cardiovascular: Normal S1 and S2, tachycardia. No murmurs, gallops or rubs. Delayed capillary refill above 3 seconds Respiratory: Normal ventilation mechanics. Clear lung sounds on auscultation Abdomen: Soft, nontender, no organomegaly, normal bowel sounds. Subcutaneous edema in abdomen, has erythema in right side of abdomen (herpetiform) MSK/skin: Mobilizes 4 limbs. Skin is dry and cold extremities. Bilateral suprapatellar yesterday pitting edema, right greater than left. Dose lowering pain on palpation and Homans sign is positive in the right limb Neurological: Oriented in 3 spheres. No motor no sensitive deficits. Pupils are isocoric and reactive Labs/Xrays Labs Test 04/19/25 01:46 04/19/25 00:27 Range/Units White Blood Count 9.2 4.4-10.8 10^3/uL Red Blood Count 4.82 4.5-5.90 10^6/uL Hemoglobin 13.1 L 13.5-17.5 g/dL Hematocrit 39.3 L 41.0-53.0 % Mean Corpuscular Volume 81.5 80.0-100.0 fL Mean Corpuscular Hemoglobin 27.1 L 28.0-32.0 pg Mean Corpuscular Hemoglobin Concent 33.2 32.0-36.0 g/dL Red Cell Distribution Width 17.1 H 11.8-14.3 % Platelet Count 145 140-450 10^3/uL Mean Platelet Volume 7.8 6.9-10.8 fL Neutrophils (%) (Auto) 90.5 H 37.0-80.0 % Lymphocytes (%) (Auto) 3.2 L 10.0-50.0 % Monocytes (%) (Auto) 4.4 0.0-12.0 % Eosinophils (%) (Auto) 1.7 0.0-7.0 % Basophils (%) (Auto) 0.2 0.0-2.0 % Neutrophils # (Auto) 8.3 1.6-8.6 10 ^3/uL Lymphocytes # (Auto) 0.3 L 0.4-5.4 10 ^3/uL Monocytes # (Auto) 0.4 0-1.3 10 ^3/uL Eosinophils # (Auto) 0.2 0-0.8 10 ^3/uL Basophils # (Auto) 0 0-0.2 10 ^3/uL Nucleated Red Blood Cells 0.4 % Prothrombin Time 15.6 H 9.3-11.8 sec Prothrombin Time INR 1.54 H 0.9-1.15 Activated Partial Thromboplast Time 44.3 H 24.5-34.5 SEC Sodium Level 129 L 136-145 mmol/L Potassium Level 4.6 3.5-5.1 mmol/L Chloride Level 100 98-107 mmol/L Carbon Dioxide Level 22 20-31 mmol/L Anion Gap 7 5-15 Blood Urea Nitrogen 40 H 9-23 mg/dL Creatinine 1.99 H 0.700-1.30 mg/dL Glomerular Filtration Rate Calc 36 >90 mL/min BUN/Creatinine Ratio 20.1 H 10.0-20.0 Serum Glucose 106 74-106 mg/dL Lactic Acid Level 2.0 0.4-2.0 mmol/L Calcium Level 8.3 L 8.7-10.4 mg/dL Magnesium Level 1.8 1.6-2.6 mg/dL Total Bilirubin 4.9 H 0.2-1.0 mg/dL Aspartate Amino Transferase (AST) 64 H 13-40 U/L Alanine Aminotransferase (ALT) 58 H 7-40 U/L Alkaline Phosphatase 170 H 46-116 U/L B-Type Natriuretic Peptide 1075.48 0-100 pg/mL Total Protein 7.4 5.7-8.2 g/dL Albumin 2.6 L 3.2-4.8 g/dL SEPSIS Sepsis Screen Date sepsis recognized/suspect: Apr 19, 2025 Time Sepsis recognized/suspect: 14 Recent Procedure: No On Antibiotic Therapy: No Respiratory Rate >20: Yes Heart Rate >90: Yes Temp<36 C (96.8 F) or >38.3 C: No SBP <90 or MAP <65 mmHG: No New Acute Mental Status Change: No Is the patient on CPAP, BIPAP,: No Physician Orders Electrocardigram (04/19/25 00:07) Troponin-I Hs (04/19/25 01:07) Troponin-I Hs (04/19/25 03:07) Chest Xray 1 View (04/19/25 00:07) Blood Culture (04/19/25 00:33) Norepinephrine 8 Mg/250ml Kit (Levophed) (04/19/25 01:30) Admit (04/19/25 02:41) Code Status (04/19/25 02:41) Acetaminophen Tablet (Tylenol Tablet) (04/19/25 02:45) Npo (Nothing By Mouth) Diet (04/19/25 Breakfast) Echo 2d Mode Cardiac Dop (04/19/25 02:41) Morphine Sulfate Injection (04/19/25 02:45) Enoxaparin Sodium (Lovenox) (04/19/25 10:00) Oxygen By Nasal Cannula (04/19/25 02:41) Stat Ekg For Chest Pain (04/19/25 02:41) Notify Md Of Changes From Base (04/19/25 02:41) [employer] For 24 Hours (04/19/25 02:41) Emergency Dysrhythmia Protocol (04/19/25 02:41) Rhythm Strips Once Every Shift (04/19/25 02:41) Urine Bacterial Culture (04/19/25 02:41) Respiratory Culture W/ Gs (04/19/25 02:41) Sputum Induction (04/19/25 02:41) Mrsa Screen (04/19/25 02:41) Covid19 Antigen Mae (04/19/25 ) Rapid Influenza A&B (04/19/25 02:41) Vitamin D, 25-Hydroxy (04/19/25 02:41) Vitamin B12 (04/19/25 02:41) Urinalysis (04/19/25 02:41) Thyroid Stimulating Hormone (04/19/25 02:41) Phosphorus (04/19/25 02:41) Magnesium (04/19/25 02:41) Lipid Panel (04/19/25 02:41) Lipase (04/19/25 02:41) Lactic Acid W/ Reflex Order (04/19/25 02:41) Hemoglobin A1c (04/19/25 02:41) Drug Screen (04/19/25 02:41) Ammonia (04/19/25 02:41) Abg W/ Co-Ox (04/19/25 02:41) Cefepime 1 Gm (04/19/25 10:00) Cefepime 1 Gm (04/19/25 02:45) Doxycycline 100mg/100ml (Vibramycin) (04/19/25 02:45) Vancomycin (04/19/25 03:00) Vital Signs Date Time Temp Pulse Resp B/P (MAP) Pulse Ox O2 Delivery O2 Flow Rate FiO2 04/19/25 00:41 115 04/19/25 00:38 16 92 Nasal Cannula* 5 40 04/19/25 00:25 119 04/19/25 00:22 98.1 116 17 69/44 (52) 99 98.1 04/19/25 00:07 98.4 110 30 123/49 96 98.4 04/19/25 00:01 115 Laboratory Tests Test 04/19/25 00:27 Lactic Acid Level 2.0 mmol/L (0.4-2.0) White Blood Count 9.2 10^3/uL (4.4-10.8) Medications Medications Dose Ordered Sig/Ángel Route Start Time Stop Time Status Last Admin Dose Admin Aspirin 81 mg ONCE ONCE PO 04/19/25 01:15 04/19/25 01:16 DC 04/19/25 01:05 81 MG Piperacillin Sod/ Tazobactam Sod 100 ml @ 100 mls/hr ONCE ONCE IV 04/19/25 00:45 04/19/25 01:44 DC 04/19/25 01:05 100 MLS/HR Sodium Chloride 500 ml @ 500 mls/hr Q1H ONCE IV 04/19/25 00:45 04/19/25 01:44 DC 04/19/25 00:45 500 MLS/HR Sodium Chloride 500 ml @ 500 mls/hr Q1H ONCE IV 04/19/25 01:30 04/19/25 02:29 DC 04/19/25 01:34 500 MLS/HR Assessment/Plan Assessment/Plan Mixed shock (cardiogenic and septic) Acute respiratory failure secondary to PNA/CHF Acute on chronic systolic congestive heart failure (HFrEF, LVEF 25%) Permanent atrial fibrillation (CHADS-VASc 3) - secondary hypercoagulability state NSTEMI probable type 2 Ruled out pulmonary embolism Rule out DVT History of DVT and PE Completed EKG which showed AFib RVR with bad progression of precordial R's, no ST-elevation Patient currently on IV diuretics, IV antibiotics, IV vasopressor and inotropic medication (norepinephrine and dobutamine) Currently under empiric IV antibiotic (vancomycin and cefepime) Currently on oxygen therapy with nasal cannula at 4 L/min Ordered solorzano cultures (blood, urine, sputum and viral serologies) Ordered angio CT which ruled out pulmonary embolism, evidence of probable pneumonia Ordered echocardiogram lower limb extremely venous ultrasound Placed central line in right internal jugular vein with no pneumothorax Currently on therapeutic enoxaparin JACKIE hemodynamically mediated (VMN) Hypovolemic Hyponatremia Currently on IV diuretics, IV antibiotics, IV vasopressors and inotropic medication (norepinephrine dobutamine) Due to high mortality risk of pulmonary embolism, discussed probably ending with requirement of dialysis, patient agreed with risks and accepted angio CT. We will monitor BUN and creatinine Transaminitis Hepatitis-C (untreated) Monitor CMP Follow-up with GI specialist as outpatient for eventual treatment Normocytic anemia Monitor H&H Polysubstance abuse Counseled strongly on cessation for over 16 minutes Order UDS Hospice revoked Patient is currently full code, he did not want to be in hospice per patient Diagnosed diabetes (hemoglobin A1c 6.5%) Currently on insulin sliding scale Goals of care discussed with patient for over 18 minutes: Full code status Discussed plan with Dr. Taylor, patient and nurses: Patient is currently ICU status due to IV vasopressor and inotropic requirement. Patient has mixed shock, probable cardiogenic and septic, with IV vasopressors, IV inotropics, IV antibiotics on oxygen therapy and empiric IV antibiotics. Ruled out pulmonary embolism, ordered echocardiogram. Patient has poor prognosis Plan discussed with: Patient, Other (Nurses) My Orders Orders - MERISSA DESIR RESIDENT Procedure Category Date Status Time Admit ADMIT 04/19/25 Transmitted 02:41 Code Status CODE 04/19/25 Transmitted 02:41 Acetaminophen Tablet PHA 04/19/25 Logged (Tylenol Tablet) 02:45 Npo (Nothing By DIET 04/19/25 Transmitted Mouth) Diet Breakfast Echo 2d Mode Cardiac US 04/19/25 Logged DOP 02:41 Morphine Sulfate PHA 04/19/25 Logged Injection 02:45 Enoxaparin Sodium PHA 04/19/25 Logged (Lovenox) 10:00 Oxygen By Nasal RT 04/19/25 Transmitted Cannula 02:41 Stat Ekg For Chest [facility] 04/19/25 In Process Pain 02:41 Notify Of Changes [facility] 04/19/25 In Process From Base 02:41 [employer] Senior Sergeant For [facility] 04/19/25 In Process 24 Hours 02:[address] [facility] 04/19/25 In Process Protocol 02:[address] [facility] 04/19/25 In Process Every Shift 02:41 Urine Bacterial [place] 04/19/25 Transmitted Culture 02:41 Respiratory Culture [place] 04/19/25 Transmitted W/ Gs 02:41 Sputum Induction RT 04/19/25 Logged 02:41 Mrsa Screen [place] 04/19/25 Transmitted 02:41 Covid19 Antigen Mae LAB 04/19/25 Transmitted Rapid Influenza A&B LAB 04/19/25 Transmitted 02:41 Vitamin D, 25-Hydroxy LAB 04/19/25 Transmitted 02:41 Vitamin B12 LAB 04/19/25 Transmitted 02:41 Urinalysis LAB 04/19/25 Transmitted 02:41 Thyroid Stimulating LAB 04/19/25 Transmitted Hormone 02:41 Phosphorus LAB 04/19/25 Transmitted 02:41 Magnesium LAB 04/19/25 Transmitted 02:41 Lipid Panel LAB 04/19/25 Transmitted 02:41 Lipase LAB 04/19/25 Transmitted 02:41 Lactic Acid W/ Reflex LAB 04/19/25 Transmitted Order 02:41 Hemoglobin A1c LAB 04/19/25 Transmitted 02:41 Drug Screen LAB 04/19/25 Transmitted 02:41 Ammonia LAB 04/19/25 Transmitted 02:41 Abg W/ Co-Ox RT 04/19/25 Logged 02:41 Cefepime 1 Gm PHA 04/19/25 Transmitted 10:00 Cefepime 1 Gm PHA 04/19/25 Transmitted 02:45 Doxycycline PHA 04/19/25 Transmitted 100mg/100ml 02:45 Vancomycin PHA 04/19/25 Transmitted 03:00 Date of Service: Apr 19, 2025 Billing Provider: DOLORES SCHWAB MD Common Visit Codes: [id number] INP/OBS CARE (HIGH) Secondary Visit Codes: [id number] CARE PLAN 30 MINUTES MERISSA DESIR RESIDENT Apr 19, 2025 02:47
[2025-04-19] MEDS ORDERED: VANCOMYCIN PER PHARMACY 0 MG IV SCH (03:00)
[2025-04-19 03:09] LABS: Triglycerides 119 mg/dL (< 150)
[2025-04-19 03:11] LABS: Cholesterol 62 mg/dL (< 200)
[2025-04-19 03:12] LABS: HDL Cholesterol < 5 mg/dL (40-59)
[2025-04-19 03:22] LABS: Base Excess -3.4 mmol/L (-2.0-3.0)
[2025-04-19 03:29] LABS: Lipase 16 U/L (12-53)
[2025-04-19 03:55] LABS: Urine Amorphous Crystal FEW /hpf (None Seen); Urine Protein, UAD TRACE (Negative)
[2025-04-19] MEDS: DOBUTamine 1000MCG/ML 250 ML IV SCH (04:00)
--- NOTE | 2025-04-19 04:07 | DVHNC2 ---
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) Indication: Hypotension, Inability to obtain IV Room prepared for procedure: Yes Retail Event And Sales Assistant performed hand hygien: Yes Maximal sterile barrier precau: Mask/Eye shield, Sterile gown, Cap, Sterlie gloves, Large sterlie drape Skin Preparation: Chlorhexidine gluconate Skin preparation completely dr: Yes Insertion site: Right, Internal jugular Central line catheter type: [id number] dialysis Number of lumens: 3 Central line exchanged over a: No Antiseptic ointment applied to: Yes Post Assessment: Chest X-Ray, Proper placement Informed consent obtained: Yes Risks/benefits/alt described: Yes Notes Completed central line placement with ultrasound guidance, procedure supervised by Dr. Patton Date of Service: Apr 19, 2025 Billing Provider: JEFFERSON PATTON MD Common Visit Codes: PROCEDURE ONLY ARIS CONNOLLY RESIDENT Apr 19, 2025 04:06
[2025-04-19 04:12] LABS: Opiate Scree,Urine Neg (NEGATIVE)
[2025-04-19 04:13] LABS: Cannabinoid Screen, Urine Pos (NEGATIVE); Phencyclidine Screen, Urine Pos (NEGATIVE)
[2025-04-19 04:19] LABS: Amphetamine Screen, Urine Pos (NEGATIVE); Barbiturate Scree,Urine Neg (NEGATIVE); Benzodiazephine Screen, Urine Neg (NEGATIVE); Cocaine Screen, Urine Neg (NEGATIVE)
[2025-04-19] MEDS: VANCOMYCIN 1GM/250ML KIT 250 ML IV ONE ×2 (04:43→06:24)
[2025-04-19] MEDS: VANCOMYCIN 1GM/200ML PM 200 ML IV SCH (05:00)
--- NOTE | 2025-04-19 05:22 | DVH ---
CHEST RADIOGRAPH Indication: central line placement / Technique: Single frontal view of the chest was obtained COMPARISON: XY CHEST XRAY 1 VIEW on DOS: 04/19/25, XY CHEST PORTABLE on DOS: 08/18/23, XY CHEST PORTABL E on DOS: 02/10/23, XR CHEST 1 VIEW on DOS: 02/04/23 FINDINGS: Lines and Tubes: Right central venous catheter in satisfactory position Lungs: Congestion Pleura: No effusion. No pneumothorax. Cardiomediastinal contours: Unremarkable Bones: Unremarkable IMPRESSION: Right central venous catheter in satisfactory position.
[2025-04-19] MEDS: IOHEXOL 350 MG/ML 100ML IJ ONE (05:33)
--- NOTE | 2025-04-19 05:50 | DVH ---
CTA Chest with intravenous contrast INDICATION: Rule out PE COMPARISON: XY CHEST PORTABLE on DOS: 04/19/25, XY CHEST XRAY 1 VIEW on DOS: 04/19/25, CT CT ANGIO CHES T CONTRAST on DOS: 08/19/23, XY CHEST PORTABLE on DOS: 08/18/23, XY CHEST PORTABLE on DOS: 02/10/23 TECHNIQUE: Multidetector spiral CTA of the chest was performed of the chest with intravenous contrast . PULMONARY ANGIOGRAPHY PROTOCOL was utilized using a bolus-tracking technique centered on the main p ulmonary artery. Axial, coronal and sagittal multiplanar and MIP reformats were performed. Radiation Dose : 1. Chest: CTDI volume is 22.7 mGy. Dose-length product is 870.23 mGy*cm The dose indicators for CT are the volume Computed Tomography (CT) Dose Index (CTDIvol) and the Dose Length Product (DLP), and are measured in units of mGy and mGy-cm, respectively. These indicators are not patient dose, but values generated from the CT scanner acquisition factors. The report includes radiation exposure data for exposures received during this examination. Findings: Pulmonary artery: No pulmonary embolism. Lower neck: Normal thyroid. Lungs: Minimal patchy multifocal bilateral pulmonary infiltrate. Trace bilateral pleural effusions w ith adjacent atelectasis. No focal consolidation or pneumothorax. Heart/Vascular Structures: Cardiomegaly. No pericardial effusion. Right internal jugular central veno us access catheter. Atherosclerotic vascular calcifications. Lymph Nodes: Conspicuous mildly enlarged mediastinal and bilateral hilar lymph nodes measure up to 1. 0 cm in short axis dimension. Musculoskeletal: No acute osseous abnormality. Soft tissues: Normal. Upper abdomen: Limited portions of the upper abdomen are unremarkable. IMPRESSION: 1. No pulmonary embolism. 2. Minimal patchy multifocal bilateral pulmonary infiltrate. 3. Trace bilateral pleural effusions with adjacent atelectasis. 4. Cardiomegaly. 5. Conspicuous mildly enlarged mediastinal and bilateral hilar lymph nodes measure up to 1.0 cm in sh ort axis dimension.
[2025-04-19] MEDS ORDERED: FUROSEMIDE 40 MG/4 ML VIAL IV SCH ×2 (06:00→10:00)
[2025-04-19] MEDS: CEFEPIME 1GM/50ML 50 ML IV ONE (06:20)
[2025-04-19] MEDS: methylPREDNISolone SOD SUCC 40 MG/ML VL IV ONE (06:45)
[2025-04-19] MEDS: ENOXAPARIN SOD 100 MG/1 ML SYRINGE SC ONE (06:46)
[2025-04-19 07:10] LABS: COVID19 ANTIGEN SOFIA FIA NEGATIVE (NEGATIVE)
--- NOTE | 2025-04-19 08:17 | DVH ---
CLINICAL HISTORY: Lower limb swelling COMPARISON: US BILAT LOWER DVT on DOS: 08/19/23, US BILAT LOW EXT ART DUPLEX on DOS: 02/08/23, US RT LO WER DVT on DOS: 02/07/23, XY R TIB FIB XRAY on DOS: 02/07/23 TECHNIQUE: Bilateral lower extremity venous duplex exam was performed. Grayscale, color flow, and sp ectral waveform analysis was performed. The deep veins of the lower extremity were evaluated for comp ression, phasic flow, and augmentation. Color flow and spectral waveform analysis were performed. FINDINGS: This examination demonstrates normal compression, augmentation, and phasic flow of both low er extremities. No evidence for thrombus within the common femoral, femoral, and popliteal veins. In addition, the calf veins demonstrated normal compression and color flow. Bilateral pulsatile venous flow demonstrated. Right inguinal lymph node measures up to 4.7 x 1.3 x 4.0 cm. IMPRESSION: 1. There is no evidence for DVT in either lower extremity. 2. Bilateral pulsatile venous flow demonstrated. The findings are nonspecific, but may be seen with e levated pulmonary artery pressures and may be seen with a degree of tricuspid regurgitation. Correla te with clinical findings. If clinically indicated, correlation with echocardiogram could be consider ed. 3. Enlarged right inguinal lymph node, may be reactive. Malignancy can not be excluded. Correlate wi th clinical findings. If clinically indicated, biopsy could be obtained.
[2025-04-19] MEDS: CEFEPIME 2GM/50ML NS 50 ML IV SCH (09:15)
[2025-04-19] MEDS ORDERED: ENOXAPARIN SOD 40 MG/0.4 ML SYRINGE SC SCH (10:00)
[2025-04-19] MEDS ORDERED: CEFEPIME 1GM/50ML 50 ML IV SCH (10:00)
[2025-04-19 10:08] LABS: Hematocrit 38.7 % (41.0-53.0); Hemoglobin 12.6 g/dL (13.5-17.5); Mean Corpuscular Hemoglobin 26.6 pg (28.0-32.0); Mean Corpuscular Volume 81.5 fL (80.0-100.0); Nucleated Red Blood Cells % 0.1 %
[2025-04-19 10:31] LABS: Anion Gap 7 (5-15); BUN/Creatinine Ratio 28.0 (10.0-20.0); Carbon Dioxide 22 mmol/L (20-31); Chloride 101 mmol/L (98-107); Potassium 4.6 mmol/L (3.5-5.1); Total Protein 7.0 g/dL (5.7-8.2)
[2025-04-19 10:34] LABS: Alanine Aminotransferase 51 U/L (7-40); Albumin 2.5 g/dL (3.2-4.8); Alkaline Phosphatase 160 U/L (46-116); Bilirubin, Total 5.4 mg/dL (0.2-1.0); Blood Urea Nitrogen 51 mg/dL (9-23); Calcium 7.9 mg/dL (8.7-10.4); Glucose 138 mg/dL (74-106); Magnesium 1.6 mg/dL (1.6-2.6); Sodium 130 mmol/L (136-145)
[2025-04-19] MEDS: IPRATROPIUM BROM 0.5 MG/2.5ML INH SOL NEB SCH (12:01)
[2025-04-19] MEDS: LEVALBUTEROL HCL 1.25 MG/3 ML NEB NEB SCH (12:01)
--- NOTE | 2025-04-19 12:16 | DVHPNRES ---
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 He also reports productive cough, orthopnea, generalized weakness, and nausea. He denies fever, chest pain, bladder/bowel habit changes. 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 Due to his heart failure, has been on home hospice since 3 months. Uses walker for mobility, drives, has sex toys in his belongings Home medication: Entresto, apixaban, metoprolol, Lasix, and hydrochlorothiazide Allergic history: Tetracycline and tomato Patient seen and examined at the bedside. Patient is feeling better, but still complaining of shortness of breaths. Objective vital signs Vital Sign Date Time Temp Pulse Resp B/P (MAP) Pulse Ox O2 Delivery O2 Flow Rate FiO2 04/19/25 09:45 125 20 91/56 (68) 95 04/19/25 08:44 3.0 32 04/19/25 08:00 97.8 97.8 04/19/25 07:20 Nasal Cannula* Total Intake and Output 04/18/25 04/18/25 04/19/25 15:00 23:00 07:00 Intake Total 1332.50 ml Balance 1332.50 ml medications Current Medications Medications Dose Ordered Sig/Ángel Route Start Time Stop Time Status Last Admin Dose Admin Norepinephrine Bitartrate 250 ml @ 3.75 mls/hr Q24H IV 04/19/25 01:30 04/19/25 02:00 3.75 MLS/HR Acetaminophen 325 mg Q4HP PRN PO 04/19/25 02:45 Morphine Sulfate 2 mg Q4HPRN PRN IV 04/19/25 02:45 Cefepime HCl 50 ml @ 12.5 mls/hr Q12HR IV 04/19/25 10:00 UNV Vancomycin HCl 0 ml @ 0 mls/hr UD IV 04/19/25 03:00 Dobutamine HCl/ Dextrose 250 ml @ 15 mls/hr [id number] IV 04/19/25 03:00 04/19/25 04:00 15 MLS/HR Furosemide 40 mg BIDD IV 04/19/25 06:00 Hold Furosemide 40 mg DAILY IV 04/19/25 10:00 Hold Enoxaparin Sodium 100 mg Q12HR SC 04/19/25 22:00 Methylprednisolone Sodium Succinate 40 mg BID IV 04/19/25 22:00 Ipratropium [place] 0.5 mg Q6HWA NEB 04/19/25 12:00 Levalbuterol HCl 0.625 mg Q6HR NEB 04/19/25 12:00 Cefepime HCl 50 ml @ 12.5 mls/hr Q12H IV 04/19/25 09:00 04/19/25 09:15 12.5 MLS/HR Examination General Appearance: Alert, Oriented X3, Cooperative, in mild respiratory distress HEENT: Atraumatic, PERRLA, EOMI, Mucous membrane moist/pink Respiratory: Bilateral rhonchi with mild crackles Cardiovascular: Regular rate, Normal S1, Normal S2, No murmurs, no chest wall tenderness Abdominal: Abdomen is mildly distended, with subcutaneous edema, and take an indurated skin, intertrigo of inguinal area Extremities: Bilateral lower limb pedal edema, +2 on the left, 4 on the right, with thick and indurated skin, multiple small 1 x 2 cm grade 2-3 ulcer of the right lower limb, on plantar surface Neuro: Normal gait, Normal speech, Strength at 5/5 X4 ext, Normal tone, Sensation intact, Cranial nerves 3-12 NL, Reflexes 2+ Psych/Mental Status: Mental status NL, Mood NL laboratory and microbiology Laboratory Tests 04/19/25 09:50 Test 04/19/25 09:50 Range/Units Serum Glucose 138 H 74-106 mg/dL Labs and/or images reviewed: Labs reviewed by me, Image(s) reviewed by me Problem List/Assessment/Plan Problem List/Assessment/Plan This is a 69-year-old male with past medical history of 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 Admitted on 04/18 with primary diagnosis of heart failure and COPD exacerbation. NEURO: Multiple substance abuse disorder UDS positive for methamphetamine, phencyclidine and marijuana Current smoker * Plan: Nicotine patch CARDIOVASCULAR: Cardiogenic shock, likely due to AFib/substance use disorder Possible septic shock, likely due to UTI/pneumonia Acute on chronic systolic heart failure Atrial fibrillation, with RVR NSTEMI, type 2 due to above Acquired Hypercoagulability Volume overload * EKGs shows AFib, poor R-wave progression otherwise no significant ST or T-wave changes * Chest x-rays shows cardiomegaly with pulmonary vascular congestion * Serial trop I is mildly raised, BNP is raised at 1075, IVC is 3 cm with 10% collapse * Plan: Levophed, and Lasix 40 mg b.i.d., check echo RESPIRATORY: COPD exacerbation Pneumonia, likely due to Gram-positive/Gram-negative * Plan: Breathing treatment GENITOURINARY/FLUID: Leong catheter in place GASTROINTESTINAL/NUTRITION: Transaminitis INFECTIOUS DISEASE: Sepsis, likely due to pneumonia/cellulitis Pneumonia Cellulitis of bilateral lower limb * Blood culture 04/18, preliminary result shows Gram-positive cocci in chain * Plan: IV Vancomycin (04/18) and cefepime (04/18), fluconazole 400 daily (04/19) HEMATOLOGY: History of DVT and pulmonary emboli Ruled out pulmonary emboli and DVT * Plan: Therapeutic dose of Lovenox METABOLIC: Hyponatremia, likely due to heart failure Hypomagnesemia MSK/SKIN: Intertrigo Cellulitis * Plan: IV antibiotic, oral and topical antifungal, keep dry the intertrigo DIET: Cardiac diet DVT prophylax: On therapeutic dose of Lovenox GI prophylaxis: Pepcid Bowel regimen: None LINES/DEVICES IV access: Right IJ 04/18 Drips: Levophed Leong catheter: Refuses Leong Disposition: Continue ICU status Critical care time: Spent >68 min, spent in direct critical care, including evaluation, management, review of labs/imaging, and multidisciplinary discussions, (excluding any procedures). Case discussed with Dr. Quach Plan discussed with: Patient, Other My Orders My Orders Orders - JEMAL DAS RESDIDAO Procedure Category Date Status Time * Wound Consult CONS 04/19/25 Transmitted Cardiac DIET 04/19/25 Transmitted Diet-2gna,Lofat,Lochol Lunch Date of Service: Apr 19, 2025 Billing Provider: AMY QUACH MD Common Visit Codes: 18739-[id number] CARE 30-74 MIN JEMAL DAS RESDIENT Apr 19, 2025 12:16 AMY QUACH MD Apr 20, 2025 14:44
[2025-04-19] MEDS: NICOTINE 21MG/24 HR TOPICAL PATCH TD ONE (14:24)
[2025-04-19] MEDS: FUROSEMIDE 40 MG/4 ML VIAL IV SCH (17:36)
[2025-04-19] MEDS: FLUCONAZOLE 100 MG TAB PO ONE (17:37)
[2025-04-19] MEDS: CLOTRIMAZOLE 1 % CREAM 15GM TOP ONE (20:00)
[2025-04-19] MEDS: ENOXAPARIN SOD 120 MG/0.8 ML SYRINGE SC SCH (21:01)
[2025-04-19] MEDS: CLOTRIMAZOLE 1 % CREAM 15GM TOP SCH (21:02)
[2025-04-19] MEDS ORDERED: methylPREDNISolone SOD SUCC 40 MG/ML VL IV SCH (22:00)
[2025-04-19] MEDS ORDERED: ENOXAPARIN SOD 100 MG/1 ML SYRINGE SC SCH (22:00)
[2025-04-20] VITALS (105 sets, daily range): BP systolic 65–175; BP diastolic 37–133; PULSE 97–134; RESP 12–24; TEMP 97.5–97.9; O2SAT 77–100
[2025-04-20] MEDS: MELATONIN 5 MG TAB PO ONE (03:29)
[2025-04-20 03:34] LABS: Hematocrit 42.5 % (41.0-53.0); Hemoglobin 14.1 g/dL (13.5-17.5); Mean Corpuscular Hemoglobin 27.1 pg (28.0-32.0); Mean Corpuscular Volume 81.8 fL (80.0-100.0); Nucleated Red Blood Cells % 0.8 %
[2025-04-20 03:54] LABS: Anion Gap 7 (5-15); BUN/Creatinine Ratio 19.9 (10.0-20.0); Carbon Dioxide 21 mmol/L (20-31); Chloride 102 mmol/L (98-107); Potassium 4.7 mmol/L (3.5-5.1); Total Protein 7.6 g/dL (5.7-8.2)
[2025-04-20 03:59] LABS: Alanine Aminotransferase 43 U/L (7-40); Albumin 2.6 g/dL (3.2-4.8); Alkaline Phosphatase 159 U/L (46-116); Bilirubin, Total 5.1 mg/dL (0.2-1.0); Blood Urea Nitrogen 30 mg/dL (9-23); Calcium 8.2 mg/dL (8.7-10.4); Glucose 222 mg/dL (74-106); Sodium 130 mmol/L (136-145)
--- NOTE | 2025-04-20 05:23 | DVH ---
CHEST RADIOGRAPH Indication: Pneumonia Technique: Single frontal view of the chest was obtained Comparison: XY CHEST PORTABLE on DOS: 04/19/25 FINDINGS: Lines and Tubes: Right central venous catheter noted with the tip terminating in the right atrium. Lungs: Bilateral interstitial prominence. No focal consolidation. Pleura: No effusion. No pneumothorax. Cardiomediastinal contours: Cardiomegaly. Bones: No acute osseous abnormality. IMPRESSION: 1. Cardiomegaly with pulmonary congestion.
--- NOTE | 2025-04-20 07:46 | DVHSR ---
APPROVED REPORT EXAM: Two-dimensional and M-mode echocardiogram with Doppler and color Doppler. Blood Pressure: 93/55 mmHg INDICATION NSTEMI RISK FACTORS Height: 76, Weight: 220 DIMENSIONS LVDd5.5 (3.8-5.7cm)LA (2D)4.2 (1.9-4.0cm)Aortic Root3.8 (2.0-3.7cm) LVDs5.3 (2.5-4.0cm)LA (MM) (1.9-4.0cm)Aortic Cusp Exc1.3 (1.5-2.0cm) EF (%) 10.0 (55-70%)Rt. Atrium6.1 (1.9-4.0cm)Asc. Aorta cm IVSd1.1 (0.7-1.1cm)RV (D) (1.8-2.4cm) PWd1.0 (0.7-1.1cm) Mitral Valve MitralMitral Stenosis E wave1.22m/sMV Mean GR.mmHg A wavem/sMV Peak GR.51mmHg E/A ratio0.02D MVAcm2 Aortic Valve Aortic ValveAortic Stenosis V10.90m/Melissa Mean GR.9mmHg V21.90m/Melissa Peak GR.14mmHg LVOT Diameter2.1 (1.8-2.4cm)Doppler AVA1.64cm2 Pulmonic Valve V20.86m/s Tricuspid Valve TR Velocity2.93m/s [id number] Conclusion lvef <15% severe end stage dilated HF RV dysfunction and enlargement biatrial enlargement mild to moderate mitral regurg severe tricuspid regurg dilated IVC moderate pulm htn trivial to small pericardial effusion notd
[2025-04-20] MEDS: FLUCONAZOLE 100 MG TAB PO SCH (10:50)
[2025-04-20] MEDS: NICOTINE 21MG/24 HR TOPICAL PATCH TD SCH (10:51)
[2025-04-20] MEDS: VANCOMYCIN 750MG KIT 100 ML IV SCH (12:21)
--- NOTE | 2025-04-20 14:06 | ECG ---
[facility] Test Date: 2025-04-18 Test Time: 23:59:32 Pat Name: THALIA ROME Department: [facility] ED Room: [address] [place] [address] A Gender: M [employer] Helper: NANDO : 1955 Requested By: JEFFERSON PATTON Order Number: [id number] Reading MD: Aubrey Dumont Measurements Intervals [place] Rate: 115 P: 0 OR: 0 QRS: -80 QRSD: 110 T: 77 QT: 324 QTc: 448 Interpretive Statements Atrial flutter/fibrillation Anterolateral infarct, age indeterminate Electronically Signed On 04-21-2025 22:10:26 PDT by Aubrey Dumont Please click the below link to view image of tracing.
[2025-04-20] MEDS: FUROSEMIDE 100 MG/10ML VIAL IV ONE (15:01)
--- NOTE | 2025-04-20 16:13 | DVHPNRES ---
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 He also reports productive cough, orthopnea, generalized weakness, and nausea. He denies fever, chest pain, bladder/bowel habit changes. 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 Due to his heart failure, has been on home hospice since 3 months. Uses walker for mobility, drives, has sex toys in his belongings Home medication: Entresto, apixaban, metoprolol, Lasix, and hydrochlorothiazide Allergic history: Tetracycline and tomato Today 04/20, patient seen and examined at the bedside. Patient is feeling better, but still complaining of shortness of breaths. Objective vital signs Vital Sign Date Time Temp Pulse Resp B/P (MAP) Pulse Ox O2 Delivery O2 Flow Rate FiO2 04/20/25 15:02 109/76 04/20/25 14:00 119 04/20/25 14:00 20 98 Nasal Cannula* 3 32 04/20/25 12:00 97.7 97.7 Total Intake and Output 04/19/25 04/19/25 04/20/25 15:00 23:00 07:00 Intake Total 712.50 ml 1052.5 ml 672.50 ml Output Total 750 ml 800 ml Balance 712.50 ml 302.5 ml -127.50 ml medications Current Medications Medications Dose Ordered Sig/Ángel Route Start Time Stop Time Status Last Admin Dose Admin Norepinephrine Bitartrate 250 ml @ 3.75 mls/hr Q24H IV 04/19/25 01:30 04/20/25 10:51 18.75 MLS/HR Acetaminophen 325 mg Q4HP PRN PO 04/19/25 02:45 Morphine Sulfate 2 mg Q4HPRN PRN IV 04/19/25 02:45 Cefepime HCl 50 ml @ 12.5 mls/hr Q12HR IV 04/19/25 10:00 UNV Vancomycin HCl 0 ml @ 0 mls/hr UD IV 04/19/25 03:00 Ipratropium [place] 0.5 mg Q6HWA NEB 04/19/25 12:00 04/20/25 11:37 0.5 MG Levalbuterol HCl 0.625 mg Q6HR NEB 04/19/25 12:00 04/20/25 11:37 0.625 MG Cefepime HCl 50 ml @ 12.5 mls/hr Q12H IV 04/19/25 09:00 04/20/25 08:47 12.5 MLS/HR Nicotine 1 patch DAILY TD 04/20/25 10:00 04/20/25 10:51 1 PATCH Enoxaparin Sodium 110 mg Q12HR SC 04/19/25 22:00 04/20/25 10:50 110 MG Clotrimazole 1 applic Q12HR TOP 04/19/25 22:00 04/20/25 10:51 1 APPLIC Furosemide 60 mg BIDD IV 04/20/25 18:00 Vancomycin HCl 100 ml @ 100 mls/hr Q12H IV 04/20/25 12:00 04/20/25 12:21 100 MLS/HR Metolazone 5 mg DAILY PO 04/21/25 10:00 Fluconazole 200 mg DAILY PO 04/21/25 10:00 Examination General Appearance: Alert, Oriented X3, Cooperative, in mild respiratory distress HEENT: Atraumatic, PERRLA, EOMI, Mucous membrane moist/pink Respiratory: Bilateral rhonchi with mild crackles Cardiovascular: Regular rate, Normal S1, Normal S2, No murmurs, no chest wall tenderness Abdominal: Abdomen is mildly distended, with subcutaneous edema, and take an indurated skin, intertrigo of inguinal area Extremities: Bilateral lower limb pedal edema, +2 on the left, 4 on the right, with thick and indurated skin, multiple small 1 x 2 cm grade 2-3 ulcer of the right lower limb, on plantar surface Neuro: Normal gait, Normal speech, Strength at 5/5 X4 ext, Normal tone, Sensation intact, Cranial nerves 3-12 NL, Reflexes 2+ Psych/Mental Status: Mental status NL, Mood NL laboratory and microbiology Laboratory Tests 04/20/25 03:00 Test 04/20/25 03:00 Range/Units Serum Glucose 222 H 74-106 mg/dL Microbiology Date/Time Source Procedure Growth Status 04/19/25 08:00 Nose MRSA Screen - Final Complete 04/19/25 03:20 Voided Urine Urine Culture - Preliminary Resulted 04/19/25 00:27 Blood Blood Culture - Preliminary Resulted Labs and/or images reviewed: Labs reviewed by me Problem List/Assessment/Plan Problem List/Assessment/Plan This is a 69-year-old male with past medical history of 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 Admitted on 04/18 with primary diagnosis of heart failure and COPD exacerbation. NEURO: Multiple substance abuse disorder UDS positive for methamphetamine, phencyclidine and marijuana Current smoker * Plan: Nicotine patch CARDIOVASCULAR: Cardiogenic shock, likely due to AFib/substance use disorder Possible septic shock, likely due to UTI/pneumonia Acute on chronic systolic heart failure Atrial fibrillation, with RVR NSTEMI, type 2 due to above Acquired Hypercoagulability Volume overload Severe TR * EKGs shows AFib, poor R-wave progression otherwise no significant ST or T-wave changes * Chest x-rays shows cardiomegaly with pulmonary vascular congestion * Echo 04/18 EF 15%, severe TR * Serial trop I is mildly raised, BNP is raised at 1075, IVC is 3 cm with 10% collapse * Plan: Levophed, and Lasix 60 mg b.i.d. Metolazone 5mg daily RESPIRATORY: COPD exacerbation Pneumonia, likely due to Gram-positive/Gram-negative * Plan: Breathing treatment GENITOURINARY/FLUID: Leong catheter in place GASTROINTESTINAL/NUTRITION: Transaminitis INFECTIOUS DISEASE: Sepsis, likely due to pneumonia/cellulitis Pneumonia Cellulitis of bilateral lower limb * Blood culture 04/18, preliminary result shows Gram-positive cocci in chain * Plan: IV Vancomycin (04/18) and cefepime (04/18), fluconazole 200 daily (9/30) HEMATOLOGY: History of DVT and pulmonary emboli Ruled out pulmonary emboli and DVT * Plan: Eliquis METABOLIC: Hyponatremia, likely due to heart failure Hypomagnesemia MSK/SKIN: Intertrigo Cellulitis * Plan: IV antibiotic, oral and topical antifungal, keep dry the intertrigo DIET: Cardiac diet DVT prophylax: On therapeutic dose of Lovenox GI prophylaxis: Pepcid Bowel regimen: None LINES/DEVICES IV access: Right IJ 04/18 Drips: Levophed Leong catheter: Refuses Leong Disposition: Continue ICU status Critical care time: Spent >63 min, spent in direct critical care, including evaluation, management, review of labs/imaging, and multidisciplinary discussions, (excluding any procedures). Case discussed with Dr. Quach Plan discussed with: Other My Orders My Orders Orders - JEMAL DAS Procedure Category Date Status Time Clotrimazole 1% PHA 04/19/25 In Process Topical Cream 22:00 Fluconazole Tablet PHA 04/19/25 In Process (Diflucan Tablet) 16:30 Chest Xray 1 View XY 04/20/25 Resulted 04:00 * Dietary Consult CONS 04/19/25 Transmitted 18:43 Furosemide Injection PHA 04/20/25 In Process (Lasix Injection) 18:00 Cleanse Wound With CAL 04/20/25 In Process Wound Clean 11:05 Metolazone (Zaroxolyn) PHA 04/21/25 In Process 10:00 Blood Culture [place] 04/20/25 Logged 14:11 Dietary Evaluation Review Comments: Nutrition Recommendation: 1) CCHO 75gm + cardiac diet 2) Glucerna 240ml BID 3) Gregorio 1 pk BID 4) Monitor NPO status/PO intake, lab values, weight trend, and I/O Expected Outcomes/Goals: To meet >75% estimated needs Wound to improve Lab values to improve Fu 3-5 days Date of Service: Apr 20, 2025 Billing Provider: AMY QUACH MD Common Visit Codes: [id number] CARE 30-74 MIN JEMAL DAS RESDIENT Apr 20, 2025 16:13 AMY QUACH MD Apr 21, 2025 11:28
[2025-04-20] MEDS: FUROSEMIDE 40 MG/4 ML VIAL IV SCH (18:10)
[2025-04-20] MEDS: APIXABAN 5 MG TAB PO SCH (22:02)
[2025-04-21] VITALS (96 sets, daily range): BP systolic 84–122; BP diastolic 44–92; PULSE 100–141; RESP 13–34; TEMP 97.5–98.1; O2SAT 80–100
[2025-04-21 00:11] LABS: Anion Gap 8 (5-15)
[2025-04-21 00:17] LABS: BUN/Creatinine Ratio 28.9 (10.0-20.0)
[2025-04-21 00:29] LABS: Carbon Dioxide 25 mmol/L (20-31); Chloride 100 mmol/L (98-107); Potassium 4.6 mmol/L (3.5-5.1); Sodium 133 mmol/L (136-145)
[2025-04-21 00:30] LABS: Alanine Aminotransferase 37 U/L (7-40); Albumin 2.6 g/dL (3.2-4.8); Alkaline Phosphatase 156 U/L (46-116); Bilirubin, Total 3.9 mg/dL (0.2-1.0); Blood Urea Nitrogen 43 mg/dL (9-23); Calcium 8.3 mg/dL (8.7-10.4); Glucose 149 mg/dL (74-106); Magnesium 1.8 mg/dL (1.6-2.6); Total Protein 7.3 g/dL (5.7-8.2)
[2025-04-21 04:07] LABS: Alanine Aminotransferase 38 U/L (7-40); Anion Gap 8 (5-15); BUN/Creatinine Ratio 27.5 (10.0-20.0); Carbon Dioxide 24 mmol/L (20-31); Chloride 100 mmol/L (98-107); Potassium 4.5 mmol/L (3.5-5.1); Total Protein 7.6 g/dL (5.7-8.2)
[2025-04-21 04:10] LABS: Hematocrit 39.2 % (41.0-53.0); Hemoglobin 13.2 g/dL (13.5-17.5); Mean Corpuscular Hemoglobin 27.3 pg (28.0-32.0); Mean Corpuscular Volume 81.4 fL (80.0-100.0); Nucleated Red Blood Cells % 1.0 %
[2025-04-21 04:21] LABS: Albumin 2.7 g/dL (3.2-4.8); Alkaline Phosphatase 162 U/L (46-116); Bilirubin, Total 3.8 mg/dL (0.2-1.0); Blood Urea Nitrogen 42 mg/dL (9-23); Calcium 8.4 mg/dL (8.7-10.4); Glucose 140 mg/dL (74-106); Sodium 132 mmol/L (136-145)
[2025-04-21 04:57] LABS: Giant Platelets Few
--- NOTE | 2025-04-21 05:44 | DVH ---
CHEST RADIOGRAPH Indication: Pneumonia Technique: Single frontal view of the chest was obtained COMPARISON: XY CHEST XRAY 1 VIEW on DOS: 04/20/25, CT CT ANGIO CHEST CONTRAST on DOS: 04/19/25, XY CHES T PORTABLE on DOS: 04/19/25, XY CHEST XRAY 1 VIEW on DOS: 04/19/25, CT CT ANGIO CHEST CONTRAST on DOS: 08/19/23 FINDINGS: Lines and Tubes: Right central venous catheter in satisfactory position. Lungs: Clear Pleura: No effusion.No pneumothorax. Cardiomediastinal contours: Cardiomegaly.Unchanged pulmonary vascular congestion. Bones: Unremarkable IMPRESSION: Unchanged pulmonary vascular congestion.
[2025-04-21] MEDS: MAGNESIUM SULFATE 1GM/100ML 100 ML IV ONE (06:36)
[2025-04-21] MEDS: FLUCONAZOLE 100 MG TAB PO SCH (10:30)
--- NOTE | 2025-04-21 19:36 | DVHPNRES ---
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 He also reports productive cough, orthopnea, generalized weakness, and nausea. He denies fever, chest pain, bladder/bowel habit changes. 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 Due to his heart failure, has been on home hospice since 3 months. Uses walker for mobility, drives, has sex toys in his belongings Home medication: Entresto, apixaban, metoprolol, Lasix, and hydrochlorothiazide Allergic history: Tetracycline and tomato Today 04/21, patient seen and examined at the bedside. Patient is feeling better, but still complaining of shortness of breaths. Objective vital signs Vital Sign Date Time Temp Pulse Resp B/P (MAP) Pulse Ox O2 Delivery O2 Flow Rate FiO2 04/21/25 19:31 118 17 119/76 (90) 95 04/21/25 18:46 Room Air* 0 21 04/21/25 16:00 98.1 98.1 Total Intake and Output 04/20/25 04/20/25 04/21/25 15:00 23:00 07:00 Intake Total 285.00 ml 673.75 ml 276.25 ml Output Total 1700 ml 2100 ml Balance 285.00 ml -1026.25 ml -1823.75 ml medications Current Medications Medications Dose Ordered Sig/Ángel Route Start Time Stop Time Status Last Admin Dose Admin Norepinephrine Bitartrate 250 ml @ 3.75 mls/hr Q24H IV 04/19/25 01:30 04/20/25 10:51 18.75 MLS/HR Acetaminophen 325 mg Q4HP PRN PO 04/19/25 02:45 Morphine Sulfate 2 mg Q4HPRN PRN IV 04/19/25 02:45 Cefepime HCl 50 ml @ 12.5 mls/hr Q12HR IV 04/19/25 10:00 UNV Vancomycin HCl 0 ml @ 0 mls/hr UD IV 04/19/25 03:00 Ipratropium [place] 0.5 mg Q6HWA NEB 04/19/25 12:00 04/21/25 18:46 0.5 MG Levalbuterol HCl 0.625 mg Q6HR NEB 04/19/25 12:00 04/21/25 18:46 0.625 MG Cefepime HCl 50 ml @ 12.5 mls/hr Q12H IV 04/19/25 09:00 04/21/25 10:30 12.5 MLS/HR Nicotine 1 patch DAILY TD 04/20/25 10:00 04/21/25 10:50 1 PATCH Clotrimazole 1 applic Q12HR TOP 04/19/25 22:00 04/21/25 10:51 1 APPLIC Furosemide 60 mg BIDD IV 04/20/25 18:00 04/21/25 17:39 60 MG Vancomycin HCl 100 ml @ 100 mls/hr Q12H IV 04/20/25 12:00 04/21/25 14:58 100 MLS/HR Metolazone 5 mg DAILY PO 04/21/25 10:00 04/21/25 10:32 5 MG Fluconazole 200 mg DAILY PO 04/21/25 10:00 04/21/25 10:30 200 MG Apixaban 5 mg BID PO 04/20/25 22:00 04/21/25 10:49 5 MG Empaglifozin 10 mg DAILY PO 04/22/25 10:00 Examination General Appearance: Alert, Oriented X3, Cooperative, in mild respiratory distress HEENT: Atraumatic, PERRLA, EOMI, Mucous membrane moist/pink Respiratory: Bilateral rhonchi with mild crackles Cardiovascular: Regular rate, Normal S1, Normal S2, No murmurs, no chest wall tenderness Abdominal: Abdomen is mildly distended, with subcutaneous edema, and take an indurated skin, intertrigo of inguinal area Extremities: Bilateral lower limb pedal edema, +2 on the left, 4 on the right, with thick and indurated skin, multiple small 1 x 2 cm grade 2-3 ulcer of the right lower limb, on plantar surface Neuro: Normal gait, Normal speech, Strength at 5/5 X4 ext, Normal tone, Sensation intact, Cranial nerves 3-12 NL, Reflexes 2+ Psych/Mental Status: Mental status NL, Mood NL laboratory and microbiology Laboratory Tests 04/21/25 02:52 Test 04/21/25 02:52 Range/Units Serum Glucose 140 H 74-106 mg/dL Microbiology Date/Time Source Procedure Growth Status 04/20/25 17:36 Blood Blood Culture - Preliminary NO GROWTH AFTER 24 HOURS OF INCUBATION. 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 Admitted on 04/18 with primary diagnosis of heart failure and COPD exacerbation. NEURO: Multiple substance abuse disorder UDS positive for methamphetamine, phencyclidine and marijuana Current smoker * Plan: Nicotine patch CARDIOVASCULAR: Cardiogenic shock, likely due to AFib/substance use disorder Possible septic shock, likely due to UTI/pneumonia Acute on chronic systolic heart failure Atrial fibrillation, with RVR NSTEMI, type 2 due to above Acquired Hypercoagulability Volume overload Severe TR * EKGs shows AFib, poor R-wave progression otherwise no significant ST or T-wave changes * Chest x-rays shows cardiomegaly with pulmonary vascular congestion * Echo 04/18 EF 15%, severe TR * Serial trop I is mildly raised, BNP is raised at 1075, IVC is 3 cm with 10% collapse * Plan: Levophed, and Lasix 60 mg b.i.d. Metolazone 5mg daily RESPIRATORY: COPD exacerbation Pneumonia, likely due to Gram-positive/Gram-negative * Plan: Breathing treatment GENITOURINARY/FLUID: Leong catheter in place GASTROINTESTINAL/NUTRITION: Transaminitis INFECTIOUS DISEASE: Sepsis, likely due to pneumonia/cellulitis Pneumonia Cellulitis of bilateral lower limb * Blood culture 04/18, preliminary result shows Gram-positive cocci in chain * Plan: IV Vancomycin (04/18) and cefepime (04/18), fluconazole 200 daily (04/19) HEMATOLOGY: History of DVT and pulmonary emboli Ruled out pulmonary emboli and DVT * Plan: Eliquis METABOLIC: Hyponatremia, likely due to heart failure Hypomagnesemia MSK/SKIN: Intertrigo Cellulitis * Plan: IV antibiotic, oral and topical antifungal, keep dry the intertrigo DIET: Cardiac diet DVT prophylax: On therapeutic dose of Lovenox GI prophylaxis: Pepcid Bowel regimen: None LINES/DEVICES IV access: Right IJ 04/18 Drips: Levophed Leong catheter: Refuses Leong Disposition: Continue ICU status Critical care time: Spent >53 min, spent in direct critical care, including evaluation, management, review of labs/imaging, and multidisciplinary discussions, (excluding any procedures). Case discussed with Dr. Quach Plan discussed with: Other My Orders My Orders Orders - JEMAL DAS Procedure Category Date Status Time Comprehensive LAB 04/22/25 Verified Metabolic Panel 04:00 Complete Blood Count LAB 04/22/25 Verified 04:00 Chest Xray 1 View XY 04/22/25 Logged 04:00 Magnesium LAB 04/22/25 Verified 04:00 Empagliflozin PHA 04/22/25 In Process (Jardiance) 10:00 Communication Order ORDERS 04/21/25 Transmitted 08:55 Dietary Evaluation Review Comments: Nutrition Recommendation: 1) CCHO 75gm + cardiac diet 2) Glucerna 240ml BID 3) Gregorio 1 pk BID 4) Monitor NPO status/PO intake, lab values, weight trend, and I/O Expected Outcomes/Goals: To meet >75% estimated needs Wound to improve Lab values to improve Fu 3-5 days Date of Service: Apr 21, 2025 Billing Provider: AMY QUACH MD Common Visit Codes: [id number] CARE 30-74 MIN JEMAL DAS Apr 21, 2025 19:36 AMY QUACH MD Apr 23, 2025 11:35
[2025-04-21] MEDS: MAGNESIUM SULFATE 1GM/100ML 100 ML IV SCH (22:18)
[2025-04-22] VITALS (84 sets, daily range): BP systolic 87–130; BP diastolic 55–88; PULSE 39–141; RESP 11–40; TEMP 97.7–98; O2SAT 75–100
[2025-04-22 04:44] LABS: Alanine Aminotransferase 36 U/L (7-40); Anion Gap 8 (5-15); BUN/Creatinine Ratio 32.9 (10.0-20.0); Calcium 8.8 mg/dL (8.7-10.4); Carbon Dioxide 27 mmol/L (20-31); Magnesium 2.2 mg/dL (1.6-2.6); Potassium 4.5 mmol/L (3.5-5.1)
[2025-04-22 05:13] LABS: Albumin 2.9 g/dL (3.2-4.8); Alkaline Phosphatase 190 U/L (46-116); Bilirubin, Total 3.2 mg/dL (0.2-1.0); Blood Urea Nitrogen 46 mg/dL (9-23); Chloride 97 mmol/L (98-107); Glucose 134 mg/dL (74-106); Sodium 132 mmol/L (136-145); Total Protein 8.3 g/dL (5.7-8.2)
--- NOTE | 2025-04-22 05:51 | DVH ---
CHEST RADIOGRAPH Indication: pneumonia Technique: Single frontal view of the chest was obtained COMPARISON: XY CHEST XRAY 1 VIEW on DOS: 04/21/25, XY CHEST XRAY 1 VIEW on DOS: 04/20/25, XY CHEST PORT ABLE on DOS: 04/19/25, XY CHEST XRAY 1 VIEW on DOS: 04/19/25, XY CHEST PORTABLE on DOS: 08/18/23 FINDINGS: Lines and Tubes: Right internal jugular central venous catheter unchanged. Lungs: Stable mild diffuse increased prominence of the pulmonary vasculature Pleura: No effusion. No pneumothorax. Cardiomediastinal contours: Cardiomegaly. Bones: Unremarkable IMPRESSION: 1. Stable mild pulmonary vascular congestion. 2. Cardiomegaly. 3. Right IJ central venous catheter.
[2025-04-22 06:38] LABS: Hematocrit 39.9 % (41.0-53.0); Hemoglobin 13.2 g/dL (13.5-17.5); Mean Corpuscular Hemoglobin 26.9 pg (28.0-32.0); Mean Corpuscular Volume 81.7 fL (80.0-100.0); Nucleated Red Blood Cells % 0.9 %
[2025-04-22] MEDS: EMPAGLIFLOZIN 10 MG TAB PO SCH (08:37)
[2025-04-22] MEDS: AMIODARONE BOLUS KIT 100 ML IV ONE (10:54)
[2025-04-22] MEDS ORDERED: AMIODARONE 360mg/200mL PREMIX 200 ML IV ONE (11:00)
[2025-04-22] MEDS: AMIODARONE 360mg/200mL PREMIX 200 ML IV ONE (11:16)
[2025-04-22] MEDS: METOPROLOL TARTRATE 25 MG TAB PO ONE (14:00)
--- NOTE | 2025-04-22 14:36 | DVHPNRES ---
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 He also reports productive cough, orthopnea, generalized weakness, and nausea. He denies fever, chest pain, bladder/bowel habit changes. 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 Due to his heart failure, has been on home hospice since 3 months. Uses walker for mobility, drives, has sex toys in his belongings Home medication: Entresto, apixaban, metoprolol, Lasix, and hydrochlorothiazide Allergic history: Tetracycline and tomato Today 04/22, patient seen and examined at the bedside. Patient is feeling better, but still complaining of shortness of breaths. Objective vital signs Vital Sign Date Time Temp Pulse Resp B/P (MAP) Pulse Ox O2 Delivery O2 Flow Rate FiO2 04/22/25 11:38 18 97 Room Air* 0 21 04/22/25 11:38 108 04/22/25 08:37 115/88 04/22/25 04:00 97.9 97.9 Total Intake and Output 04/21/25 04/21/25 04/22/25 14:59 22:59 06:59 Intake Total 192.375 ml 731.875 ml 600 ml Output Total 2600 ml 2500 ml Balance 192.375 ml -1868.125 ml -1900 ml medications Current Medications Medications Dose Ordered Sig/Ángel Route Start Time Stop Time Status Last Admin Dose Admin Norepinephrine Bitartrate 250 ml @ 3.75 mls/hr Q24H IV 04/19/25 01:30 04/20/25 10:51 18.75 MLS/HR Acetaminophen 325 mg Q4HP PRN PO 04/19/25 02:45 Morphine Sulfate 2 mg Q4HPRN PRN IV 04/19/25 02:45 Cefepime HCl 50 ml @ 12.5 mls/hr Q12HR IV 04/19/25 10:00 UNV Vancomycin HCl 0 ml @ 0 mls/hr UD IV 04/19/25 03:00 Ipratropium [place] 0.5 mg Q6HWA [facility] [place] 04/19/25 12:00 04/22/25 13:41 0.5 MG Levalbuterol HCl 0.625 mg Q6HR NEB 04/19/25 12:00 04/22/25 13:41 0.625 MG Nicotine 1 patch DAILY TD 04/20/25 10:00 04/22/25 08:37 1 PATCH Clotrimazole 1 applic Q12HR TOP 04/19/25 22:00 04/22/25 08:37 1 APPLIC Furosemide 60 mg BIDD IV 04/20/25 18:00 04/22/25 06:17 60 MG Vancomycin HCl 100 ml @ 100 mls/hr Q12H IV 04/20/25 12:00 04/22/25 13:44 100 MLS/HR Fluconazole 200 mg DAILY PO 04/21/25 10:00 04/22/25 08:36 200 MG Apixaban 5 mg BID PO 04/20/25 22:00 04/22/25 08:37 5 MG Empaglifozin 10 mg DAILY PO 04/22/25 10:00 04/22/25 08:37 10 MG Metolazone 2.5 mg DAILY PO 04/22/25 10:00 Amiodarone HCL/ Dextrose 200 ml @ 16.66 mls/ hr Q12H IV 04/22/25 17:00 Cefepime HCl 50 ml @ 12.5 mls/hr Q8H IV 04/22/25 17:00 Examination General Appearance: Alert, Oriented X3, Cooperative, in mild respiratory distress HEENT: Atraumatic, PERRLA, EOMI, Mucous membrane moist/pink Respiratory: Bilateral rhonchi with mild crackles Cardiovascular: Regular rate, Normal S1, Normal S2, No murmurs, no chest wall tenderness Abdominal: Abdomen is mildly distended, with subcutaneous edema, and take an indurated skin, intertrigo of inguinal area Extremities: Bilateral lower limb pedal edema, +2 on the left, 4 on the right, with thick and indurated skin, multiple small 1 x 2 cm grade 2-3 ulcer of the right lower limb, on plantar surface Neuro: Normal gait, Normal speech, Strength at 5/5 X4 ext, Normal tone, Sensation intact, Cranial nerves 3-12 NL, Reflexes 2+ Psych/Mental Status: Mental status NL, Mood NL laboratory and microbiology Laboratory Tests 04/22/25 03:30 Test 04/22/25 03:30 Range/Units Serum Glucose 134 H 74-106 mg/dL Microbiology Date/Time Source Procedure Growth Status 04/20/25 17:36 Blood Blood Culture - Preliminary NO GROWTH AFTER 24 HOURS OF INCUBATION. 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 Admitted on 04/18 with primary diagnosis of heart failure and COPD exacerbation. NEURO: Multiple substance abuse disorder UDS positive for methamphetamine, phencyclidine and marijuana Current smoker * Plan: Nicotine patch CARDIOVASCULAR: Cardiogenic shock, likely due to AFib/substance use disorder Possible septic shock, likely due to UTI/pneumonia Acute on chronic systolic heart failure Atrial fibrillation, with RVR NSTEMI, type 2 due to above Acquired Hypercoagulability Volume overload Severe TR * EKGs shows AFib, poor R-wave progression otherwise no significant ST or T-wave changes * Chest x-rays shows cardiomegaly with pulmonary vascular congestion * Echo 04/18 EF 15%, severe TR * Serial trop I is mildly raised, BNP is raised at 1075, IVC is 3 cm with 10% collapse * Plan: Apixaban, Lasix 60 mg b.i.d. Metolazone 2.5mg daily, Jardiance, metoprolol 12.5 mg b.i.d., and amiodarone (04/22) RESPIRATORY: COPD exacerbation Pneumonia, likely due to Gram-positive/Gram-negative * Plan: Breathing treatment GENITOURINARY/FLUID: Leong catheter in place GASTROINTESTINAL/NUTRITION: Transaminitis INFECTIOUS DISEASE: Seven septic shock, due to sepsis Sepsis, likely due to pneumonia/cellulitis/bacteremia Bacteremia due to Streptococcus dysgalactiae Pneumonia Cellulitis of bilateral lower limb * Blood culture 04/18, Streptococcus dysgalactiae * Blood culture 04/20, shows no growth * Plan: IV Vancomycin (04/18) and cefepime (04/18), fluconazole 200 daily (04/19) HEMATOLOGY: History of DVT and pulmonary emboli Ruled out pulmonary emboli and DVT * Plan: Eliquis METABOLIC: Hyponatremia, likely due to heart failure Hypomagnesemia MSK/SKIN: Intertrigo Cellulitis * Plan: IV antibiotic, oral and topical antifungal, keep dry the intertrigo DIET: Cardiac diet DVT prophylax: On therapeutic dose of Lovenox GI prophylaxis: Pepcid Bowel regimen: None LINES/DEVICES IV access: Right IJ 04/18 Drips: Levophed Leong catheter: Refuses Leong Disposition: WANDY status Critical care time: Spent >63 min, spent in direct critical care, including evaluation, management, review of labs/imaging, and multidisciplinary discussions, (excluding any procedures). Case discussed with Dr. Uribe Plan discussed with: Patient My Orders My Orders Orders - JEMAL DAS Procedure Category Date Status Time Communication Order ORDERS 04/21/25 Transmitted 08:55 Metolazone (Zaroxolyn) PHA 04/22/25 In Process 10:00 Transfer Orders XFER 04/22/25 Transmitted 09:40 Dietary Evaluation Review Comments: Nutrition Recommendation: 1) CCHO 75gm + cardiac diet 2) Glucerna 240ml BID 3) Gregorio 1 pk BID 4) Monitor NPO status/PO intake, lab values, weight trend, and I/O Expected Outcomes/Goals: To meet >75% estimated needs Wound to improve Lab values to improve Fu 3-5 days JEMAL DAS Apr 22, 2025 14:36
[2025-04-22] MEDS: AMIODARONE 360mg/200mL PREMIX 200 ML IV SCH (18:04)
[2025-04-22] MEDS: CEFEPIME 2GM/50ML NS 50 ML IV SCH (18:07)
[2025-04-22] MEDS: METOPROLOL TARTRATE 25 MG TAB PO SCH (22:00)
[2025-04-23] VITALS (71 sets, daily range): BP systolic 77–109; BP diastolic 48–77; PULSE 74–107; RESP 11–28; TEMP 96.4–98.1; O2SAT 61–100
[2025-04-23] MEDS: MELATONIN 5 MG TAB ONE (03:43)
[2025-04-23] MEDS: MELATONIN 5 MG TAB PO SCH (03:51)
[2025-04-23 05:36] LABS: Hematocrit 38.8 % (41.0-53.0); Hemoglobin 13.1 g/dL (13.5-17.5); Mean Corpuscular Hemoglobin 27.5 pg (28.0-32.0); Mean Corpuscular Volume 81.7 fL (80.0-100.0); Nucleated Red Blood Cells % 0.7 %
[2025-04-23 05:48] LABS: Alanine Aminotransferase 33 U/L (7-40); Anion Gap 8 (5-15); BUN/Creatinine Ratio 31.1 (10.0-20.0); Calcium 9.0 mg/dL (8.7-10.4); Carbon Dioxide 28 mmol/L (20-31); Magnesium 1.8 mg/dL (1.6-2.6); Potassium 4.3 mmol/L (3.5-5.1)
[2025-04-23 05:53] LABS: Albumin 3.0 g/dL (3.2-4.8); Alkaline Phosphatase 200 U/L (46-116); Bilirubin, Total 2.7 mg/dL (0.2-1.0); Blood Urea Nitrogen 47 mg/dL (9-23); Chloride 95 mmol/L (98-107); Glucose 149 mg/dL (74-106); Sodium 131 mmol/L (136-145); Total Protein 8.4 g/dL (5.7-8.2)
--- NOTE | 2025-04-23 10:45 | DVHPN2 ---
Subjective Denies any symptoms at this time Reviewed: Care Plan, H&P, Labs, Medications Changes from previous H/P or p: No Changes General: Per HPI Objective Vitals Vital Signs Date Time Temp Pulse Resp B/P (MAP) Pulse Ox O2 Delivery O2 Flow Rate FiO2 04/23/25 08:15 93 14 93 04/23/25 08:00 Nasal Cannula* 5 40 04/23/25 05:00 98.0 98.0 Intake/Output Intake and Output 04/23/25 07:00 Intake Total 1677.39 ml Output Total 4450 ml Balance -2772.61 ml Intake Oral 940 ml IV Total 737.39 ml Output Urine Total 4450 ml # Voids 7 # Bowel Movements 4 General Appearance: Alert, Oriented X3, mild distress HEENT: Atraumatic, PERRLA Cardiovascular: Regular rate, Normal S1, Normal S2, Other (AFib with controlled rate) Abdomen: Normal bowel sounds, Soft Extremities: Other (Bilateral lower extremity swelling. Left Charcot foot) Neuro: Normal gait, Normal speech Skin: Wounds (See nurse notes and pictures) Psych/Mental Status: Mental status NL, Mood NL Medications Current Medications Medications Dose Ordered Sig/Ángel Route Start Time Stop Time Status Last Admin Dose Admin Norepinephrine Bitartrate 250 ml @ 3.75 mls/hr Q24H IV 04/19/25 01:30 Hold 04/20/25 10:51 Acetaminophen 325 mg Q4HP PRN PO 04/19/25 02:45 Cefepime HCl 50 ml @ 12.5 mls/hr Q12HR IV 04/19/25 10:00 UNV Vancomycin HCl 0 ml @ 0 mls/hr UD IV 04/19/25 03:00 Ipratropium [place] 0.5 mg Q6HWA [facility] 04/19/25 12:00 04/22/25 18:39 Levalbuterol HCl 0.625 mg Q6HR NEB 04/19/25 12:00 04/23/25 00:06 Nicotine 1 patch DAILY TD 04/20/25 10:00 04/22/25 08:37 Clotrimazole 1 applic Q12HR TOP 04/19/25 22:00 04/22/25 22:10 Furosemide 60 mg BIDD IV 04/20/25 18:00 04/23/25 06:09 Vancomycin HCl 100 ml @ 100 mls/hr Q12H IV 04/20/25 12:00 04/23/25 00:06 Fluconazole 200 mg DAILY PO 04/21/25 10:00 04/22/25 08:36 Apixaban 5 mg BID PO 04/20/25 22:00 04/22/25 22:10 Empaglifozin 10 mg DAILY PO 04/22/25 10:00 04/22/25 08:37 Metolazone 2.5 mg DAILY PO 04/22/25 10:00 Amiodarone HCL/ Dextrose 200 ml @ 16.66 mls/ hr Q12H IV 04/22/25 17:00 04/23/25 05:46 Cefepime HCl 50 ml @ 12.5 mls/hr Q8H IV 04/22/25 17:00 04/23/25 01:15 Metoprolol Tartrate 12.5 mg BID PO 04/22/25 22:00 Melatonin 5 mg HS PO 04/23/25 22:00 04/23/25 03:51 Laboratory Results Laboratory Tests 04/23/25 04:50 Chemistry Test 04/23/25 04:50 Albumin 3.0 g/dL (3.2-4.8) L Calcium Level 9.0 mg/dL (8.7-10.4) Magnesium Level 1.8 mg/dL (1.6-2.6) Total Protein 8.4 g/dL (5.7-8.2) H LFT Test 04/23/25 04:50 Alanine Aminotransferase (ALT) 33 U/L (7-40) Alkaline Phosphatase 200 U/L (46-116) H Aspartate Amino Transferase (AST) 35 U/L (13-40) Total Bilirubin 2.7 mg/dL (0.2-1.0) H Urinalysis Test 04/19/25 03:20 Urine Color Yellow (Yellow) Urine Clarity Clear (Clear) Urine pH 5.5 (5.0-9.0) Urine Specific [place] 1.017 (1.001-1.035) Urine Protein Trace (Negative) H Urine Ketones Negative (Negative) Urine Blood 1+ /uL (Negative) H Urine Nitrite Negative (Negative) Urine Bilirubin 1+ (Negative) Urine Urobilinogen 2 mg/dL (Negative) H Urine Leukocyte Esterase Negative /uL (Negative) Urine RBC 4 /hpf (0 - 3) Urine Microscopic WBC 5 /HPF (0-3) H Urine Squamous Epithelial Cells Few /hpf (<5) Urine Amorphous Crystals Few /hpf (None Seen) Urine Bacteria None seen /hpf (None Seen) Urine Granular Casts Few /lpf (0) Urine Glucose Normal mg/dL (Normal) Microbiology Microbiology Date/Time Source Procedure Growth Status 04/20/25 17:36 Blood Blood Culture - Preliminary NO GROWTH AFTER 48 HOURS OF INCUBATION. Resulted 04/19/25 08:00 Nose MRSA Screen - Final Complete 04/19/25 03:20 Voided Urine Urine Culture - Final Complete Labs and/or images reviewed: Labs reviewed by me, Image(s) reviewed by me Assessment/Plan Assessment/Plan Impression: -acute decompensated systolic heart failure -polysubstance abuse -AFib with RVR -medication noncompliance -bilateral lower extremity cellulitis -cardiogenic shock -acute kidney injury, vasomotor nephropathy -acute drug withdrawal -acute hypoxic respiratory failure Plan: -heart rate controlled. Stop amiodarone drip. Start amiodarone 200 mg p.o. b.i.d. -continue beta-trice therapy, hold Zafar given renal function -start Jardiance -stop IV Lasix, start Lasix 60 mg p.o. daily -IV Ativan for signs of withdrawals -O2 supplementation to keep saturation greater than 92% -continue antibiotics -transferred to telemetry floor Total time spent with patient discussing and formulating plan of care: 35 minutes. This medical document was created using an electronic medical record system with [employer] dictation system. Although this document has been carefully reviewed, there may still be some phonetic and typographical errors. These areas are purely typographical due to imperfections of the software programs, and do not reflect any compromise in the patient's medical care. Plan discussed with: Patient, Other (RN) My Orders Orders - HI VALERA COW RIDER Procedure Category Date Status Time Amiodarone Tablet PHA 04/23/25 Verified (Cordarone Tablet) 22:00 Furosemide Tablet PHA 04/24/25 Verified (Lasix Tablet) 10:00 Lorazepam 2mg/Ml Inj PHA 04/23/25 Verified (Ativan Inj) 10:45 Empagliflozin PHA 04/24/25 Verified (Jardiance) 10:00 Transfer Orders XFER 04/23/25 Verified 10:32 Date of Service: Apr 23, 2025 Billing Provider: HI VALERA NP Common Visit Codes: [id number] INP/OBS CARE(HIGH) HI VALERA NP Apr 23, 2025 10:45
[2025-04-23] MEDS: AMIODARONE HCL 200 MG TAB PO SCH (21:06)
[2025-04-24] VITALS (27 sets, daily range): BP systolic 83–115; BP diastolic 53–77; PULSE 84–110; RESP 13–24; TEMP 97–98; O2SAT 78–100
[2025-04-24 06:50] LABS: Hematocrit 37.7 % (41.0-53.0); Hemoglobin 12.6 g/dL (13.5-17.5); Mean Corpuscular Hemoglobin 27.1 pg (28.0-32.0); Mean Corpuscular Volume 81.5 fL (80.0-100.0); Nucleated Red Blood Cells % 0.2 %
[2025-04-24] MEDS: EMPAGLIFLOZIN 10 MG TAB PO SCH (09:17)
[2025-04-24] MEDS: FUROSEMIDE 20 MG TAB PO SCH (10:00)
--- NOTE | 2025-04-24 11:09 | DVHPN2 ---
Subjective Denies any symptoms at this time Reviewed: Care Plan, H&P, Labs, Medications Changes from previous H/P or p: No Changes General: Per HPI Objective Vitals Vital Signs Date Time Temp Pulse Resp B/P (MAP) Pulse Ox O2 Delivery O2 Flow Rate FiO2 04/24/25 10:00 86 90/60 04/24/25 09:00 14 96 04/24/25 08:00 98.0 98.0 04/24/25 08:00 Nasal Cannula* 5 40 Intake/Output Intake and Output 04/24/25 07:00 Intake Total 1006.64 ml Output Total 4800 ml Balance -3793.36 ml Intake Oral 865 ml IV Total 141.64 ml Output Urine Total 4800 ml # Bowel Movements 3 General Appearance: Alert, Oriented X3, mild distress HEENT: Atraumatic, PERRLA Cardiovascular: Regular rate, Normal S1, Normal S2, Other (AFib with controlled rate) Abdomen: Normal bowel sounds, Soft Extremities: Other (Bilateral lower extremity swelling. Left Charcot foot) Neuro: Normal gait, Normal speech Skin: Wounds (See nurse notes and pictures) Psych/Mental Status: Mental status NL, Mood NL Medications Current Medications Medications Dose Ordered Sig/Ángel Route Start Time Stop Time Status Last Admin Dose Admin Norepinephrine Bitartrate 250 ml @ 3.75 mls/hr Q24H IV 04/19/25 01:30 Hold 04/20/25 10:51 18.75 MLS/HR Acetaminophen 325 mg Q4HP PRN PO 04/19/25 02:45 Cefepime HCl 50 ml @ 12.5 mls/hr Q12HR IV 04/19/25 10:00 UNV Vancomycin HCl 0 ml @ 0 mls/hr UD IV 04/19/25 03:00 Ipratropium [place] 0.5 mg Q6HWA NEB 04/19/25 12:00 04/24/25 07:16 0.5 MG Levalbuterol HCl 0.625 mg Q6HR NEB 04/19/25 12:00 04/24/25 07:16 0.625 MG Nicotine 1 patch DAILY TD 04/20/25 10:00 04/24/25 09:18 1 PATCH Clotrimazole 1 applic Q12HR TOP 04/19/25 22:00 04/24/25 09:19 1 APPLIC Fluconazole 200 mg DAILY PO 04/21/25 10:00 04/24/25 09:18 200 MG Apixaban 5 mg BID PO 04/20/25 22:00 04/24/25 09:17 5 MG Metolazone 2.5 mg DAILY PO 04/22/25 10:00 04/23/25 11:13 2.5 MG Cefepime HCl 50 ml @ 12.5 mls/hr Q8H IV 04/22/25 17:00 04/24/25 08:43 12.5 MLS/HR Metoprolol Tartrate 12.5 mg BID PO 04/22/25 22:00 04/23/25 11:14 12.5 MG Melatonin 5 mg HS PO 04/23/25 22:00 04/23/25 21:06 5 MG Amiodarone HCl 200 mg Q12HR PO 04/23/25 22:00 04/24/25 10:23 200 MG Furosemide 60 mg DAILY PO 04/24/25 10:00 Lorazepam 1 mg Q8HP PRN IV 04/23/25 10:45 Empaglifozin 10 mg DAILY PO 04/24/25 10:00 04/24/25 09:17 10 MG Laboratory Results Laboratory Tests 04/23/25 04:50 04/24/25 05:50 Urinalysis Test 04/19/25 03:20 Urine Color Yellow (Yellow) Urine Clarity Clear (Clear) Urine pH 5.5 (5.0-9.0) Urine Specific [place] 1.017 (1.001-1.035) Urine Protein Trace (Negative) H Urine Ketones Negative (Negative) Urine Blood 1+ /uL (Negative) H Urine Nitrite Negative (Negative) Urine Bilirubin 1+ (Negative) Urine Urobilinogen 2 mg/dL (Negative) H Urine Leukocyte Esterase Negative /uL (Negative) Urine RBC 4 /hpf (0 - 3) Urine Microscopic WBC 5 /HPF (0-3) H Urine Squamous Epithelial Cells Few /hpf (<5) Urine Amorphous Crystals Few /hpf (None Seen) Urine Bacteria None seen /hpf (None Seen) Urine Granular Casts Few /lpf (0) Urine Glucose Normal mg/dL (Normal) Microbiology Microbiology Date/Time Source Procedure Growth Status 04/20/25 17:36 Blood Blood Culture - Preliminary NO GROWTH AFTER 72 HOURS OF INCUBATION. Resulted 04/19/25 08:00 Nose MRSA Screen - Final Complete 04/19/25 03:20 Voided Urine Urine Culture - Final Complete Labs and/or images reviewed: Labs reviewed by me, Image(s) reviewed by me Assessment/Plan Assessment/Plan Impression: -acute decompensated systolic heart failure -polysubstance abuse -AFib with RVR -medication noncompliance -bilateral lower extremity cellulitis -cardiogenic shock -acute kidney injury, vasomotor nephropathy -acute drug withdrawal -acute hypoxic respiratory failure Plan: Events: Patient refusing diuretics. -continue beta-trice therapy, hold Zafar given renal function -continue Lasix and Jardiance -stop IV Lasix, start Lasix 60 mg p.o. daily -IV Ativan for signs of withdrawals -O2 supplementation to keep saturation greater than 92% -continue antibiotics -transfer to telemetry floor Total time spent with patient discussing and formulating plan of care: 35 minutes. This medical document was created using an electronic medical record system with [employer] dictation system. Although this document has been carefully reviewed, there may still be some phonetic and typographical errors. These areas are purely typographical due to imperfections of the software programs, and do not reflect any compromise in the patient's medical care. Plan discussed with: Patient, Other (RN) Date of Service: Apr 24, 2025 Billing Provider: HI VALERA NP Common Visit Codes: [id number] INP/OBS CARE(HIGH) HI VALERA NP Apr 24, 2025 11:09
--- NOTE | 2025-04-24 15:28 | DVHPN2 ---
Progress Note - Dictate Date Seen: Apr 23, 2025 Medical Necessity Reason Pt with a Central, PICC or Fol: No vital signs Vital Sign Date Time Temp Pulse Resp B/P (MAP) Pulse Ox O2 Delivery O2 Flow Rate FiO2 04/24/25 14:00 16 99 Nasal Cannula* 5 40 04/24/25 12:19 84 04/24/25 12:00 92/65 (74) 04/24/25 08:00 98.0 98.0 Total Intake and Output 04/23/25 04/23/25 04/24/25 15:00 23:00 07:00 Intake Total 406.64 ml 112.5 ml 487.5 ml Output Total 2700 ml 2100 ml Balance 406.64 ml -2587.5 ml -1612.5 ml medications Current Medications Medications Dose Ordered Sig/Ángel Route Start Time Stop Time Status Last Admin Dose Admin Norepinephrine Bitartrate 250 ml @ 3.75 mls/hr Q24H IV 04/19/25 01:30 Hold 04/20/25 10:51 18.75 MLS/HR Acetaminophen 325 mg Q4HP PRN PO 04/19/25 02:45 Cefepime HCl 50 ml @ 12.5 mls/hr Q12HR IV 04/19/25 10:00 UNV Vancomycin HCl 0 ml @ 0 mls/hr UD IV 04/19/25 03:00 Ipratropium [place] 0.5 mg Q6HWA [facility] 04/19/25 12:00 04/24/25 12:10 0.5 MG Levalbuterol HCl 0.625 mg Q6HR NEB 04/19/25 12:00 04/24/25 12:10 0.625 MG Nicotine 1 patch DAILY TD 04/20/25 10:00 04/24/25 09:18 1 PATCH Clotrimazole 1 applic Q12HR TOP 04/19/25 22:00 04/24/25 09:19 1 APPLIC Fluconazole 200 mg DAILY PO 04/21/25 10:00 04/24/25 09:18 200 MG Apixaban 5 mg BID PO 04/20/25 22:00 04/24/25 09:17 5 MG Metolazone 2.5 mg DAILY PO 04/22/25 10:00 04/23/25 11:13 2.5 MG Cefepime HCl 50 ml @ 12.5 mls/hr Q8H IV 04/22/25 17:00 04/24/25 08:43 12.5 MLS/HR Metoprolol Tartrate 12.5 mg BID PO 04/22/25 22:00 04/23/25 11:14 12.5 MG Melatonin 5 mg HS PO 04/23/25 22:00 04/23/25 21:06 5 MG Amiodarone HCl 200 mg Q12HR PO 04/23/25 22:00 04/24/25 10:23 200 MG Furosemide 60 mg DAILY PO 04/24/25 10:00 Lorazepam 1 mg Q8HP PRN IV 04/23/25 10:45 Empaglifozin 10 mg DAILY PO 04/24/25 10:00 04/24/25 09:17 10 MG Vancomycin HCl 250 ml @ 200 mls/hr Q24H IV 04/24/25 16:00 laboratory and microbiology Laboratory Tests 04/24/25 05:50 04/23/25 04:50 Test 04/23/25 04:50 Range/Units Serum Glucose 149 H 74-106 mg/dL Assessment/Plan Impression Acute hypoxemic respiratory failure Cardiomegaly Substance abuse Cellulitis Patient seen and examined Events Low oxygen requirements On 2 liters nasal cannula No acute events Labs and imaging reviewed Management Supplemental oxygen Titrate to maintain sats 90% or above Incentive spirometry Continue antibiotics F/u cultures Bronchodilators Monitor renal function Monitor electrolytes Supplement as needed F/u cardiology Okay to downgrade from pulmonary standpoint DVT prophylaxis Dietary Evaluation Review Comments: Nutrition Recommendation: 1) CCHO 75gm + cardiac diet 2) Glucerna 240ml BID 3) Gregorio 1 pk BID 4) Monitor NPO status/PO intake, lab values, weight trend, and I/O Expected Outcomes/Goals: To meet >75% estimated needs Wound to improve Lab values to improve Fu 3-5 days Plan discussed with: Patient JAY CARRASCO MD Apr 24, 2025 15:28
--- NOTE | 2025-04-24 15:29 | DVHPN2 ---
Progress Note - Dictate Date Seen: Apr 24, 2025 Medical Necessity Reason Pt with a Central, PICC or Fol: No vital signs Vital Sign Date Time Temp Pulse Resp B/P (MAP) Pulse Ox O2 Delivery O2 Flow Rate FiO2 04/24/25 14:00 16 99 Nasal Cannula* 5 40 04/24/25 12:19 84 04/24/25 12:00 92/65 (74) 04/24/25 08:00 98.0 98.0 Total Intake and Output 04/23/25 04/23/25 04/24/25 15:00 23:00 07:00 Intake Total 406.64 ml 112.5 ml 487.5 ml Output Total 2700 ml 2100 ml Balance 406.64 ml -2587.5 ml -1612.5 ml medications Current Medications Medications Dose Ordered Sig/Ángel Route Start Time Stop Time Status Last Admin Dose Admin Norepinephrine Bitartrate 250 ml @ 3.75 mls/hr Q24H IV 04/19/25 01:30 Hold 04/20/25 10:51 18.75 MLS/HR Acetaminophen 325 mg Q4HP PRN PO 04/19/25 02:45 Cefepime HCl 50 ml @ 12.5 mls/hr Q12HR IV 04/19/25 10:00 UNV Vancomycin HCl 0 ml @ 0 mls/hr UD IV 04/19/25 03:00 Ipratropium [place] 0.5 mg Q6HWA [facility] 04/19/25 12:00 04/24/25 12:10 0.5 MG Levalbuterol HCl 0.625 mg Q6HR NEB 04/19/25 12:00 04/24/25 12:10 0.625 MG Nicotine 1 patch DAILY TD 04/20/25 10:00 04/24/25 09:18 1 PATCH Clotrimazole 1 applic Q12HR TOP 04/19/25 22:00 04/24/25 09:19 1 APPLIC Fluconazole 200 mg DAILY PO 04/21/25 10:00 04/24/25 09:18 200 MG Apixaban 5 mg BID PO 04/20/25 22:00 04/24/25 09:17 5 MG Metolazone 2.5 mg DAILY PO 04/22/25 10:00 04/23/25 11:13 2.5 MG Cefepime HCl 50 ml @ 12.5 mls/hr Q8H IV 04/22/25 17:00 04/24/25 08:43 12.5 MLS/HR Metoprolol Tartrate 12.5 mg BID PO 04/22/25 22:00 04/23/25 11:14 12.5 MG Melatonin 5 mg HS PO 04/23/25 22:00 04/23/25 21:06 5 MG Amiodarone HCl 200 mg Q12HR PO 04/23/25 22:00 04/24/25 10:23 200 MG Furosemide 60 mg DAILY PO 04/24/25 10:00 Lorazepam 1 mg Q8HP PRN IV 04/23/25 10:45 Empaglifozin 10 mg DAILY PO 04/24/25 10:00 04/24/25 09:17 10 MG Vancomycin HCl 250 ml @ 200 mls/hr Q24H IV 04/24/25 16:00 laboratory and microbiology Laboratory Tests 04/24/25 05:50 04/23/25 04:50 Test 04/23/25 04:50 Range/Units Serum Glucose 149 H 74-106 mg/dL Assessment/Plan Impression Acute hypoxemic respiratory failure Cardiomegaly Substance abuse Cellulitis Patient seen and examined Events Low oxygen requirements On 2 liters nasal cannula No distress Labs and imaging reviewed Management Supplemental oxygen Titrate to maintain sats 90% or above Incentive spirometry Continue antibiotics F/u cultures Bronchodilators Monitor renal function Monitor electrolytes Supplement as needed F/u cardiology Okay to downgrade from pulmonary standpoint DVT prophylaxis Dietary Evaluation Review Comments: Nutrition Recommendation: 1) CCHO 75gm + cardiac diet 2) Glucerna 240ml BID 3) Gregorio 1 pk BID 4) Monitor NPO status/PO intake, lab values, weight trend, and I/O Expected Outcomes/Goals: To meet >75% estimated needs Wound to improve Lab values to improve Fu 3-5 days Plan discussed with: Patient JAY CARRASCO MD Apr 24, 2025 15:29
[2025-04-24] MEDS: VANCOMYCIN 1GM/250ML KIT 250 ML IV SCH (15:44)
[2025-04-25] VITALS (20 sets, daily range): BP systolic 67–121; BP diastolic 37–87; PULSE 52–102; RESP 4–20; TEMP 97.4–98.4; O2SAT 91–100
[2025-04-25] MEDS: LORazepam 2MG/ML-1ML VIAL IV PRN (03:08)
[2025-04-25] MEDS: IPRATROPIUM BROM 0.5 MG/2.5ML INH SOL ONE (05:33)
[2025-04-25] MEDS: LEVALBUTEROL HCL 1.25 MG/3 ML NEB ONE (05:33)
--- NOTE | 2025-04-25 07:47 | DVH ---
CHEST RADIOGRAPH Indication: Pneumonia Technique: Single frontal view of the chest was obtained Comparison: XY CHEST XRAY 1 VIEW on DOS: 04/22/25, XY CHEST XRAY 1 VIEW on DOS: 04/21/25, XY CHEST XRAY 1 VIEW on DOS: 04/20/25, XY CHEST PORTABLE on DOS: 04/19/25, XY CHEST XRAY 1 VIEW on DOS: 04/19/25, XY CHEST XRAY 1 VIEW on DOS: 04/22/25 FINDINGS: Lines and Tubes: Right internal jugular central venous catheter unchanged. Lungs: Stable mild diffuse increased prominence of the pulmonary vasculature Pleura: No effusion. No pneumothorax. Cardiomediastinal contours: Cardiomegaly. Bones: Unremarkable IMPRESSION: 1. Stable mild pulmonary vascular congestion. 2. Cardiomegaly. 3. Right IJ central venous catheter.
[2025-04-25 07:52] LABS: Hematocrit 37.3 % (41.0-53.0); Hemoglobin 12.2 g/dL (13.5-17.5); Mean Corpuscular Hemoglobin 27.0 pg (28.0-32.0); Mean Corpuscular Volume 82.5 fL (80.0-100.0); Nucleated Red Blood Cells % 0.5 %
[2025-04-25 08:16] LABS: Potassium 4.8 mmol/L (3.5-5.1)
[2025-04-25 08:17] LABS: Anion Gap 4 (5-15); Calcium 8.8 mg/dL (8.7-10.4)
[2025-04-25 08:19] LABS: Carbon Dioxide 32 mmol/L (20-31); Chloride 96 mmol/L (98-107); Sodium 132 mmol/L (136-145)
[2025-04-25 08:22] LABS: BUN/Creatinine Ratio 33.3 (10.0-20.0)
[2025-04-25 08:23] LABS: Blood Urea Nitrogen 43 mg/dL (9-23); Glucose 112 mg/dL (74-106)
[2025-04-25 11:07] LABS: Hepatitis B Surface Antigen Negative (Negative)
[2025-04-25 11:57] LABS: Hepatitis C Antibody Positive (Negative)
--- NOTE | 2025-04-25 20:41 | DVHPNRES ---
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 He also reports productive cough, orthopnea, generalized weakness, and nausea. He denies fever, chest pain, bladder/bowel habit changes. 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 Due to his heart failure, has been on home hospice since 3 months. Uses walker for mobility, drives, has sex toys in his belongings Home medication: Entresto, apixaban, metoprolol, Lasix, and hydrochlorothiazide Allergic history: Tetracycline and tomato Today 04/25, patient seen and examined at the bedside. Patient is feeling better, but still complaining of shortness of breaths. Objective vital signs Vital Sign Date Time Temp Pulse Resp B/P (MAP) Pulse Ox O2 Delivery O2 Flow Rate FiO2 04/25/25 17:00 97.9 70 18 105/70 (82) 92 97.9 04/25/25 14:00 Nasal Cannula* 2 28 Total Intake and Output 04/24/25 04/24/25 04/25/25 15:00 23:00 07:00 Intake Total 50 ml 1100 ml 700 ml Output Total 1175 ml 800 ml Balance 50 ml -75 ml -100 ml medications Current Medications Medications Dose Ordered Sig/Ángel Route Start Time Stop Time Status Last Admin Dose Admin Acetaminophen 325 mg Q4HP PRN PO 04/19/25 02:45 Cefepime HCl 50 ml @ 12.5 mls/hr Q12HR IV 04/19/25 10:00 UNV Ipratropium [place] 0.5 mg Q6HWA NEB 04/19/25 12:00 04/25/25 18:52 0.5 MG Levalbuterol HCl 0.625 mg Q6HR NEB 04/19/25 12:00 04/25/25 18:53 0.625 MG Nicotine 1 patch DAILY TD 04/20/25 10:00 04/25/25 09:31 1 PATCH Clotrimazole 1 applic Q12HR TOP 04/19/25 22:00 04/25/25 09:31 1 APPLIC Apixaban 5 mg BID PO 04/20/25 22:00 04/25/25 09:29 5 MG Metolazone 2.5 mg DAILY PO 04/22/25 10:00 04/25/25 09:30 2.5 MG Cefepime HCl 50 ml @ 12.5 mls/hr Q8H IV 04/22/25 17:00 04/25/25 17:57 12.5 MLS/HR Metoprolol Tartrate 12.5 mg BID PO 04/22/25 22:00 04/25/25 09:30 12.5 MG Melatonin 5 mg HS PO 04/23/25 22:00 04/24/25 21:15 5 MG Furosemide 60 mg DAILY PO 04/24/25 10:00 04/25/25 09:30 60 MG Lorazepam 1 mg Q8HP PRN IV 04/23/25 10:45 04/25/25 03:08 1 MG Empaglifozin 10 mg DAILY PO 04/24/25 10:00 04/25/25 09:30 10 MG Examination EENT: Atraumatic, PERRLA, EOMI, Mucous membrane moist/pink Respiratory: Bilateral rhonchi with mild crackles Cardiovascular: Regular rate, Normal S1, Normal S2, No murmurs, no chest wall tenderness Abdominal: Abdomen is mildly distended, with subcutaneous edema, and take an indurated skin, intertrigo of inguinal area Extremities: Bilateral lower limb pedal edema, +2 on the left, 4 on the right, with thick and indurated skin, multiple small 1 x 2 cm grade 2-3 ulcer of the right lower limb, on plantar surface Neuro: Normal gait, Normal speech, Strength at 5/5 X4 ext, Normal tone, Sensation intact, Cranial nerves 3-12 NL, Reflexes 2+ Psych/Mental Status: Mental status NL, Mood NL laboratory and microbiology Laboratory Tests 04/25/25 07:51 04/25/25 05:59 Test 04/25/25 07:51 Range/Units Serum Glucose 112 H 74-106 mg/dL Microbiology Date/Time Source Procedure Growth Status 04/20/25 17:36 Blood Blood Culture - Final NO GROWTH AFTER 5 DAYS OF INCUBATION. 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 Admitted on 04/18 with primary diagnosis of heart failure and COPD exacerbation. NEURO: Multiple substance abuse disorder UDS positive for methamphetamine, phencyclidine and marijuana Current smoker * Plan: Nicotine patch CARDIOVASCULAR: Cardiogenic shock, likely due to AFib/substance use disorder Possible septic shock, likely due to UTI/pneumonia Acute on chronic systolic heart failure Atrial fibrillation, with RVR NSTEMI, type 2 due to above Acquired Hypercoagulability Volume overload Severe TR * EKGs shows AFib, poor R-wave progression otherwise no significant ST or T-wave changes * Chest x-rays shows cardiomegaly with pulmonary vascular congestion * Echo 04/18 EF 15%, severe TR * Serial trop I is mildly raised, BNP is raised at 1075, IVC is 3 cm with 10% collapse * Discharge plan: Apixaban, Lasix 40 mg daily, metolazone 2.5 mg every other day, metoprolol 12.5 mg tartrate b.i.d., Jardiance, Keflex, lisinopril 2.5 mg, * Plan: Apixaban, Lasix 60 mg b.i.d. Metolazone 2.5mg daily, Jardiance, metoprolol 12.5 mg b.i.d. RESPIRATORY: COPD exacerbation Pneumonia, likely due to Gram-positive/Gram-negative * Plan: Breathing treatment GENITOURINARY/FLUID: Leong catheter in place GASTROINTESTINAL/NUTRITION: Transaminitis INFECTIOUS DISEASE: Seven septic shock, due to sepsis Sepsis, likely due to pneumonia/cellulitis/bacteremia Bacteremia due to Streptococcus dysgalactiae Pneumonia Cellulitis of bilateral lower limb * Blood culture 04/18, Streptococcus dysgalactiae * Blood culture 04/20, shows no growth * Discontinue IV Vancomycin (04/18 given until 04/25) and cefepime (04/18 given until 04/25), fluconazole 200 daily (04/19 given until 04/25) * Plan: Keflex HEMATOLOGY: History of DVT and pulmonary emboli Ruled out pulmonary emboli and DVT * Plan: Eliquis METABOLIC: Hyponatremia, likely due to heart failure Hypomagnesemia MSK/SKIN: Intertrigo Cellulitis * Plan: IV antibiotic, oral and topical antifungal, keep dry the intertrigo DIET: Cardiac diet DVT prophylax: On therapeutic dose of Lovenox GI prophylaxis: Pepcid Bowel regimen: None LINES/DEVICES IV access: Right IJ 04/18 removed on 04/25 advance care planning- full code- time spent 18mins Disposition: Telemetry Case discussed with Dr. Quach Plan discussed with: Other My Orders My Orders Orders - JEMAL DAS RESDIDAO Procedure Category Date Status Time Chest Xray 1 View XY 04/25/25 Resulted 06:15 Abg W/ Co-Ox RT 04/25/25 Logged 09:01 * Hand Candy Dipper CONS 04/25/25 Transmitted Consult Dietary Evaluation Review Comments: Nutrition Recommendation: 1) CCHO 75gm + cardiac diet 2) Glucerna 240ml BID 3) Gregorio 1 pk BID 4) Monitor NPO status/PO intake, lab values, weight trend, and I/O Expected Outcomes/Goals: To meet >75% estimated needs Wound to improve Lab values to improve Fu 3-5 days Date of Service: Apr 25, 2025 Billing Provider: AMY QUACH MD Common Visit Codes: [id number] INP/OBS CARE(HIGH) Secondary Visit Codes: [id number] CARE PLAN 30 MINUTES JEMAL DAS RESDIENT Apr 25, 2025 20:41 AMY QUACH MD Apr 26, 2025 15:43
[2025-04-25] MEDS: CEPHALEXIN 250 MG CAP PO SCH (21:55)
[2025-04-26] VITALS (16 sets, daily range): BP systolic 91–124; BP diastolic 48–95; PULSE 56–105; RESP 18–22; TEMP 97.1–98.2; O2SAT 88–100
--- NOTE | 2025-04-26 07:15 | DVHDSRES ---
Discharge Summary Date of Admission Resident Creating Document: JEMAL DAS RESDIDAO Apr 19, 2025 at 02:41 Date of Discharge: Apr 26, 2025 Labs/Diagnostic Data: Laboratory Results Test 04/25/25 07:51 04/25/25 05:59 04/24/25 05:50 04/23/25 10:50 Sodium Level 132 mmol/L (136-145) Potassium Level 4.8 mmol/L (3.5-5.1) Chloride Level 96 mmol/L (98-107) Carbon Dioxide Level 32 mmol/L (20-31) Anion Gap 4 (5-15) Blood Urea Nitrogen 43 mg/dL (9-23) Creatinine 1.29 mg/dL (0.700-1.30) Glomerular Filtration Rate Calc 60 mL/min (>90) BUN/Creatinine Ratio 33.3 (10.0-20.0) Serum Glucose 112 mg/dL (74-106) Calcium Level 8.8 mg/dL (8.7-10.4) White Blood Count 6.6 10^3/uL (4.4-10.8) Red Blood Count 4.52 10^6/uL (4.5-5.90) Hemoglobin 12.2 g/dL (13.5-17.5) Hematocrit 37.3 % (41.0-53.0) Mean Corpuscular Volume 82.5 fL (80.0-100.0) Mean Corpuscular Hemoglobin 27.0 pg (28.0-32.0) Mean Corpuscular Hemoglobin Concent 32.7 g/dL (32.0-36.0) Red Cell Distribution Width 17.3 % (11.8-14.3) Platelet Count 195 10^3/uL (140-450) Mean Platelet Volume 7.7 fL (6.9-10.8) Neutrophils (%) (Auto) 74.4 % (37.0-80.0) Lymphocytes (%) (Auto) 13.0 % (10.0-50.0) Monocytes (%) (Auto) 9.3 % (0.0-12.0) Eosinophils (%) (Auto) 2.7 % (0.0-7.0) Basophils (%) (Auto) 0.6 % (0.0-2.0) Neutrophils # (Auto) 4.9 10 ^3/uL (1.6-8.6) Lymphocytes # (Auto) 0.9 10 ^3/uL (0.4-5.4) Monocytes # (Auto) 0.6 10 ^3/uL (0-1.3) Eosinophils # (Auto) 0.2 10 ^3/uL (0-0.8) Basophils # (Auto) 0 10 ^3/uL (0-0.2) Nucleated Red Blood Cells 0.5 % Hepatitis A IgM Antibody Negative Hepatitis B Surface Antigen Negative (Negative) Hepatitis B Core IgM Antibody Negative (Negative) Hepatitis C Antibody Positive (Negative) Random Vancomycin Level 19.9 ug/mL (5-10) Vancomycin Level Trough 27.7 ug/mL (5-10) Test 04/23/25 04:50 04/21/25 02:52 04/19/25 13:00 04/19/25 09:50 Magnesium Level 1.8 mg/dL (1.6-2.6) Total Bilirubin 2.7 mg/dL (0.2-1.0) Aspartate Amino Transferase (AST) 35 U/L (13-40) Alanine Aminotransferase (ALT) 33 U/L (7-40) Alkaline Phosphatase 200 U/L (46-116) Total Protein 8.4 g/dL (5.7-8.2) Albumin 3.0 g/dL (3.2-4.8) Platelet Estimate Adequate Large Platelets Few Giant Platelets Few Plasma/Serum Blood Alcohol < 3.0 mg/dL (<10) Phosphorus Level 3.2 mg/dL (2.4-5.1) Test 04/19/25 05:40 04/19/25 03:59 04/19/25 03:20 04/19/25 03:03 Influenza Type A Antigen Negative (Negative) Influenza Type B Antigen Negative (Negative) SARS-CoV-2 Antigen (Rapid) Negative (NEGATIVE) Lactic Acid Level 1.4 mmol/L (0.4-2.0) Ammonia < 10 umol/L (11-32) Troponin I High Sensitivity 176 ng/L (</=54) Urine Color Yellow (Yellow) Urine Clarity Clear (Clear) Urine pH 5.5 (5.0-9.0) Urine Specific [place] 1.017 (1.001-1.035) Urine Protein Trace (Negative) Urine Ketones Negative (Negative) Urine Blood 1+ /uL (Negative) Urine Nitrite Negative (Negative) Urine Bilirubin 1+ (Negative) Urine Urobilinogen 2 mg/dL (Negative) Urine Leukocyte Esterase Negative /uL (Negative) Urine RBC 4 /hpf (0 - 3) Urine Microscopic WBC 5 /HPF (0-3) Urine Squamous Epithelial Cells Few /hpf (<5) Urine Amorphous Crystals Few /hpf (None Seen) Urine Bacteria None seen /hpf (None Seen) Urine Granular Casts Few /lpf (0) Urine Glucose Normal mg/dL (Normal) Urine Opiates Screen Neg (NEGATIVE) Urine Fentanyl Screen Neg (NEGATIVE) Urine Barbiturates Screen Neg (NEGATIVE) Urine Phencyclidine Screen Pos (NEGATIVE) Urine Amphetamines Screen Pos (NEGATIVE) Urine Benzodiazepines Screen Neg (NEGATIVE) Urine Cocaine Screen Neg (NEGATIVE) Urine Cannabinoids Screen Pos (NEGATIVE) Blood Gas Specimen Type Arterial Blood Gas Sample Site Right fermoral Blood Gas Patient Temperature 37.0 Arterial Blood Date Drawn [id number] Arterial Blood pH 7.411 (7.350-7.450) Arterial Blood Partial Pressure CO2 32.8 mmHg (35.0-48.0) Arterial Blood Partial Pressure O2 119.8 mmHg (83.0-108.0) Arterial Blood HCO3 20.4 mmol/L (21.0-28.0) Arterial Blood Oxygen Saturation 98.9 % (94.0-98.0) Arterial Blood Base Excess -3.4 mmol/L (-2.0-3.0) Arterial Blood Oxyhemoglobin 96.3 % (94.0-98.0) Arterial Blood Carboxyhemoglobin 2.1 % (0.5-1.5) Arterial Blood Methemoglobin 0.5 % (0.0-1.5) Harry Test N/a Blood Gas Total Hemoglobin 13.50 g/dL (13.5-17.5) Blood Gas Liter Flow 4.00 Blood Gas Modality Nasal cannula Blood Gas Spontaneous Rate 24 FiO2 % 36.0 Specimen Drawn By Test 04/19/25 00:27 Prothrombin Time 15.6 sec (9.3-11.8) Prothrombin Time INR 1.54 (0.9-1.15) Activated Partial Thromboplast Time 44.3 SEC (24.5-34.5) Hemoglobin A1c 6.5 % A1C (<5.7) B-Type Natriuretic Peptide 1075.48 pg/mL (0-100) Triglycerides Level 119 mg/dL (< 150) Cholesterol Level 62 mg/dL (< 200) LDL Cholesterol 29 mg/dL (< 100) HDL Cholesterol < 5 mg/dL (40-59) Lipase 16 U/L (12-53) Vitamin B12 Level 2234 pg/mL (211-911) Vitamin D 25-Hydroxy 29.8 ng/mL (30.0-100) Thyroid Stimulating Hormone (TSH) 2.42 uIU/mL (0.55-4.78) Other Laboratory Tests 04/25/25 07:51 04/25/25 05:59 Final Diagnosis/Problems List Heart failure Discharge Disposition: [facility] Facility Discharge Instruct/Medications Diet: Cardiac 2g Na,low cholest Activity: No Restrictions, As Tolerated Follow Up/Referral: Follow up with PCP within 1 week of the discharge. Follow up with Cardiology on outpatient basis. Medications: Per transfer paper Scheduled Apixaban Base (Eliquis), 5 MG PO BID Atorvastatin Calcium (Lipitor), 1 TAB PO QPM Empagliflozin (Jardiance), 10 MG PO DAILY Furosemide (Furosemide), 40 MG PO BID Metoprolol Succinate (Toprol Xl), 25 MG PO DAILY Sacubitril-Valsartan (Entresto 24-26 mg), 1 TAB PO BID Spironolactone (Aldactone), 25 MG PO DAILY Scheduled PRN Albuterol Sulfate (Ventolin), 2.5 MG NEB Q6HPRN PRN Discharge Statement: "Patient was advised to return to the ER or call 911 if any headaches, dizziness, shortness of breath, chest pain, abdominal pain, bleeding, fevers, or worsening of medical condition. Patient was counseled about treatment plan, medications, possible side effects, patientverbalized understanding. All questions were answered to the best of my ability. This discharge took greater then 30 minutes in planning, reviewing documentation, counseling the patient, and discussing with other team members." ASSESSMENT ASSESSMENT Assessment Heart failure JEMAL DAS Apr 26, 2025 07:15
[2025-04-26] MEDS: LISINOPRIL 5 MG TAB PO SCH (10:00)
[2025-04-26] MEDS: FUROSEMIDE 20 MG TAB PO SCH (10:00)
--- NOTE | 2025-04-26 19:57 | DVHPNRES ---
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 He also reports productive cough, orthopnea, generalized weakness, and nausea. He denies fever, chest pain, bladder/bowel habit changes. 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 Due to his heart failure, has been on home hospice since 3 months. Uses walker for mobility, drives, has sex toys in his belongings Home medication: Entresto, apixaban, metoprolol, Lasix, and hydrochlorothiazide Allergic history: Tetracycline and tomato Today 04/25, patient seen and examined at the bedside. Patient is feeling better, but still complaining of shortness of breaths. Objective vital signs Vital Sign Date Time Temp Pulse Resp B/P (MAP) Pulse Ox O2 Delivery O2 Flow Rate FiO2 04/26/25 18:41 100 18 100 04/26/25 17:00 97.8 97/68 (78) 97.8 04/26/25 11:10 Room Air 0.0 04/26/25 11:10 21 Total Intake and Output 04/25/25 04/25/25 04/26/25 15:00 23:00 07:00 Intake Total 550 ml 1000 ml 500 ml Output Total 1125 ml 450 ml Balance -575 ml 1000 ml 50 ml medications Current Medications Medications Dose Ordered Sig/Ángel Route Start Time Stop Time Status Last Admin Dose Admin Acetaminophen 325 mg Q4HP PRN PO 04/19/25 02:45 Cefepime HCl 50 ml @ 12.5 mls/hr Q12HR IV 04/19/25 10:00 UNV Ipratropium [place] 0.5 mg Q6HWA NEB 04/19/25 12:00 04/26/25 18:35 0.5 MG Levalbuterol HCl 0.625 mg Q6HR NEB 04/19/25 12:00 04/26/25 18:35 0.625 MG Nicotine 1 patch DAILY TD 04/20/25 10:00 04/26/25 09:55 1 PATCH Clotrimazole 1 applic Q12HR TOP 04/19/25 22:00 04/26/25 10:01 1 APPLIC Apixaban 5 mg BID PO 04/20/25 22:00 04/26/25 09:54 5 MG Metolazone 2.5 mg DAILY PO 04/22/25 10:00 04/26/25 09:56 2.5 MG Metoprolol Tartrate 12.5 mg BID PO 04/22/25 22:00 04/25/25 09:30 12.5 MG Melatonin 5 mg HS PO 04/23/25 22:00 04/25/25 21:53 5 MG Empaglifozin 10 mg DAILY PO 04/24/25 10:00 04/26/25 09:53 10 MG Cephalexin 500 mg BID PO 04/25/25 22:00 04/26/25 09:54 500 MG Furosemide 40 mg DAILY PO 04/26/25 10:00 Lisinopril 2.5 mg DAILY PO 04/26/25 10:00 Examination EENT: Atraumatic, PERRLA, EOMI, Mucous membrane moist/pink Respiratory: Bilateral rhonchi with mild crackles Cardiovascular: Regular rate, Normal S1, Normal S2, No murmurs, no chest wall tenderness Abdominal: Abdomen is mildly distended, with subcutaneous edema, and take an indurated skin, intertrigo of inguinal area Extremities: Bilateral lower limb pedal edema, +2 on the left, 4 on the right, with thick and indurated skin, multiple small 1 x 2 cm grade 2-3 ulcer of the right lower limb, on plantar surface Neuro: Normal gait, Normal speech, Strength at 5/5 X4 ext, Normal tone, Sensation intact, Cranial nerves 3-12 NL, Reflexes 2+ Psych/Mental Status: Mental status NL, Mood NL laboratory and microbiology Laboratory Tests 04/25/25 07:51 04/25/25 05:59 Test 04/25/25 07:51 Range/Units Serum Glucose 112 H 74-106 mg/dL Microbiology Date/Time Source Procedure Growth Status 04/20/25 17:36 Blood Blood Culture - Final NO GROWTH AFTER 5 DAYS OF INCUBATION. 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 Admitted on 04/18 with primary diagnosis of heart failure and COPD exacerbation. NEURO: Multiple substance abuse disorder UDS positive for methamphetamine, phencyclidine and marijuana Current smoker * Plan: Nicotine patch CARDIOVASCULAR: Cardiogenic shock, likely due to AFib/substance use disorder Possible septic shock, likely due to UTI/pneumonia Acute on chronic systolic heart failure Atrial fibrillation, with RVR NSTEMI, type 2 due to above Acquired Hypercoagulability Volume overload Severe TR * EKGs shows AFib, poor R-wave progression otherwise no significant ST or T-wave changes * Chest x-rays shows cardiomegaly with pulmonary vascular congestion * Echo 04/18 EF 15%, severe TR * Serial trop I is mildly raised, BNP is raised at 1075, IVC is 3 cm with 10% collapse * Discharge plan: Apixaban, Lasix 40 mg daily, metolazone 2.5 mg every other day, metoprolol 12.5 mg tartrate b.i.d., Jardiance, Keflex, lisinopril 2.5 mg, * Plan: Apixaban, Lasix 40mg daily. Metolazone 2.5mg daily, Jardiance, metoprolol 12.5 mg b.i.d. RESPIRATORY: COPD exacerbation Pneumonia, likely due to Gram-positive/Gram-negative * Plan: Breathing treatment GENITOURINARY/FLUID: Leong catheter in place GASTROINTESTINAL/NUTRITION: Transaminitis INFECTIOUS DISEASE: Seven septic shock, due to sepsis Sepsis, likely due to pneumonia/cellulitis/bacteremia Bacteremia due to Streptococcus dysgalactiae Pneumonia Cellulitis of bilateral lower limb * Blood culture 04/18, Streptococcus dysgalactiae * Blood culture 04/20, shows no growth * Discontinue IV Vancomycin (04/18 given until 04/25) and cefepime (04/18 given until 04/25), fluconazole 200 daily (04/19 given until 04/25) * Plan: Keflex HEMATOLOGY: History of DVT and pulmonary emboli Ruled out pulmonary emboli and DVT * Plan: Eliquis METABOLIC: Hyponatremia, likely due to heart failure Hypomagnesemia MSK/SKIN: Intertrigo Cellulitis * Plan: topical antifungal, keep dry the intertrigo DIET: Cardiac diet DVT prophylax: On therapeutic dose of Lovenox GI prophylaxis: Pepcid Bowel regimen: None Code status, full code, advance care planning 18 mins Disposition: Telemetry Case discussed with Dr. Quach Plan discussed with: Patient, Other My Orders My Orders Orders - JEMAL DAS Procedure Category Date Status Time Cephalexin Capsule PHA 04/25/25 In Process (Keflex Capsule) 22:00 D/C Tlc CAL 04/25/25 In Process 20:39 Furosemide Tablet PHA 04/26/25 In Process (Lasix Tablet) 10:00 Lisinopril Tablet PHA 04/26/25 In Process (Zestril Tablet) 10:00 Discharge DISCHARGE 04/26/25 Transmitted 07:14 Communication Order ORDERS 04/26/25 Transmitted 15:05 Dietary Evaluation Review Comments: Nutrition Recommendation: 1) CCHO 75gm + cardiac diet 2) Glucerna 240ml BID 3) Gregorio 1 pk BID 4) Monitor NPO status/PO intake, lab values, weight trend, and I/O Expected Outcomes/Goals: To meet >75% estimated needs Wound to improve Lab values to improve Fu 3-5 days Date of Service: Apr 26, 2025 Billing Provider: AMY QUACH MD Common Visit Codes: [id number] INP/OBS CARE(HIGH) JEMAL DAS Apr 26, 2025 19:57 AMY QUACH MD Apr 27, 2025 15:21
[2025-04-27] VITALS (10 sets, daily range): BP systolic 96–179; BP diastolic 49–73; PULSE 77–99; RESP 16–22; TEMP 97.7–98.6; O2SAT 90–100
[2025-04-27 07:17] LABS: Anion Gap 6 (5-15); Potassium 4.2 mmol/L (3.5-5.1)
[2025-04-27 07:18] LABS: Calcium 8.8 mg/dL (8.7-10.4)
[2025-04-27 07:19] LABS: Carbon Dioxide 32 mmol/L (20-31); Chloride 95 mmol/L (98-107); Sodium 133 mmol/L (136-145)
[2025-04-27 07:23] LABS: BUN/Creatinine Ratio 29.5 (10.0-20.0)
[2025-04-27 07:27] LABS: Blood Urea Nitrogen 38 mg/dL (9-23); Glucose 128 mg/dL (74-106)
--- NOTE | 2025-04-27 19:31 | DVHDSRES ---
Discharge Summary Date of Admission Resident Creating Document: JEMAL DAS RESDIDAO Apr 19, 2025 at 02:41 Date of Discharge: Apr 26, 2025 Labs/Diagnostic Data: Laboratory Results Test 04/27/25 06:33 04/25/25 05:59 04/24/25 05:50 04/23/25 10:50 Sodium Level 133 mmol/L (136-145) Potassium Level 4.2 mmol/L (3.5-5.1) Chloride Level 95 mmol/L (98-107) Carbon Dioxide Level 32 mmol/L (20-31) Anion Gap 6 (5-15) Blood Urea Nitrogen 38 mg/dL (9-23) Creatinine 1.29 mg/dL (0.700-1.30) Glomerular Filtration Rate Calc 60 mL/min (>90) BUN/Creatinine Ratio 29.5 (10.0-20.0) Serum Glucose 128 mg/dL (74-106) Calcium Level 8.8 mg/dL (8.7-10.4) White Blood Count 6.6 10^3/uL (4.4-10.8) Red Blood Count 4.52 10^6/uL (4.5-5.90) Hemoglobin 12.2 g/dL (13.5-17.5) Hematocrit 37.3 % (41.0-53.0) Mean Corpuscular Volume 82.5 fL (80.0-100.0) Mean Corpuscular Hemoglobin 27.0 pg (28.0-32.0) Mean Corpuscular Hemoglobin Concent 32.7 g/dL (32.0-36.0) Red Cell Distribution Width 17.3 % (11.8-14.3) Platelet Count 195 10^3/uL (140-450) Mean Platelet Volume 7.7 fL (6.9-10.8) Neutrophils (%) (Auto) 74.4 % (37.0-80.0) Lymphocytes (%) (Auto) 13.0 % (10.0-50.0) Monocytes (%) (Auto) 9.3 % (0.0-12.0) Eosinophils (%) (Auto) 2.7 % (0.0-7.0) Basophils (%) (Auto) 0.6 % (0.0-2.0) Neutrophils # (Auto) 4.9 10 ^3/uL (1.6-8.6) Lymphocytes # (Auto) 0.9 10 ^3/uL (0.4-5.4) Monocytes # (Auto) 0.6 10 ^3/uL (0-1.3) Eosinophils # (Auto) 0.2 10 ^3/uL (0-0.8) Basophils # (Auto) 0 10 ^3/uL (0-0.2) Nucleated Red Blood Cells 0.5 % Hepatitis A IgM Antibody Negative Hepatitis B Surface Antigen Negative (Negative) Hepatitis B Core IgM Antibody Negative (Negative) Hepatitis C Antibody Positive (Negative) Random Vancomycin Level 19.9 ug/mL (5-10) Vancomycin Level Trough 27.7 ug/mL (5-10) Test 04/23/25 04:50 04/21/25 02:52 04/19/25 13:00 04/19/25 09:50 Magnesium Level 1.8 mg/dL (1.6-2.6) Total Bilirubin 2.7 mg/dL (0.2-1.0) Aspartate Amino Transferase (AST) 35 U/L (13-40) Alanine Aminotransferase (ALT) 33 U/L (7-40) Alkaline Phosphatase 200 U/L (46-116) Total Protein 8.4 g/dL (5.7-8.2) Albumin 3.0 g/dL (3.2-4.8) Platelet Estimate Adequate Large Platelets Few Giant Platelets Few Plasma/Serum Blood Alcohol < 3.0 mg/dL (<10) Phosphorus Level 3.2 mg/dL (2.4-5.1) Test 04/19/25 05:40 04/19/25 03:59 04/19/25 03:20 04/19/25 03:03 Influenza Type A Antigen Negative (Negative) Influenza Type B Antigen Negative (Negative) SARS-CoV-2 Antigen (Rapid) Negative (NEGATIVE) Lactic Acid Level 1.4 mmol/L (0.4-2.0) Ammonia < 10 umol/L (11-32) Troponin I High Sensitivity 176 ng/L (</=54) Urine Color Yellow (Yellow) Urine Clarity Clear (Clear) Urine pH 5.5 (5.0-9.0) Urine Specific [place] 1.017 (1.001-1.035) Urine Protein Trace (Negative) Urine Ketones Negative (Negative) Urine Blood 1+ /uL (Negative) Urine Nitrite Negative (Negative) Urine Bilirubin 1+ (Negative) Urine Urobilinogen 2 mg/dL (Negative) Urine Leukocyte Esterase Negative /uL (Negative) Urine RBC 4 /hpf (0 - 3) Urine Microscopic WBC 5 /HPF (0-3) Urine Squamous Epithelial Cells Few /hpf (<5) Urine Amorphous Crystals Few /hpf (None Seen) Urine Bacteria None seen /hpf (None Seen) Urine Granular Casts Few /lpf (0) Urine Glucose Normal mg/dL (Normal) Urine Opiates Screen Neg (NEGATIVE) Urine Fentanyl Screen Neg (NEGATIVE) Urine Barbiturates Screen Neg (NEGATIVE) Urine Phencyclidine Screen Pos (NEGATIVE) Urine Amphetamines Screen Pos (NEGATIVE) Urine Benzodiazepines Screen Neg (NEGATIVE) Urine Cocaine Screen Neg (NEGATIVE) Urine Cannabinoids Screen Pos (NEGATIVE) Blood Gas Specimen Type Arterial Blood Gas Sample Site Right fermoral Blood Gas Patient Temperature 37.0 Arterial Blood Date Drawn [id number] Arterial Blood pH 7.411 (7.350-7.450) Arterial Blood Partial Pressure CO2 32.8 mmHg (35.0-48.0) Arterial Blood Partial Pressure O2 119.8 mmHg (83.0-108.0) Arterial Blood HCO3 20.4 mmol/L (21.0-28.0) Arterial Blood Oxygen Saturation 98.9 % (94.0-98.0) Arterial Blood Base Excess -3.4 mmol/L (-2.0-3.0) Arterial Blood Oxyhemoglobin 96.3 % (94.0-98.0) Arterial Blood Carboxyhemoglobin 2.1 % (0.5-1.5) Arterial Blood Methemoglobin 0.5 % (0.0-1.5) Harry Test N/a Blood Gas Total Hemoglobin 13.50 g/dL (13.5-17.5) Blood Gas Liter Flow 4.00 Blood Gas Modality Nasal cannula Blood Gas Spontaneous Rate 24 FiO2 % 36.0 Specimen Drawn By Test 04/19/25 00:27 Prothrombin Time 15.6 sec (9.3-11.8) Prothrombin Time INR 1.54 (0.9-1.15) Activated Partial Thromboplast Time 44.3 SEC (24.5-34.5) Hemoglobin A1c 6.5 % A1C (<5.7) B-Type Natriuretic Peptide 1075.48 pg/mL (0-100) Triglycerides Level 119 mg/dL (< 150) Cholesterol Level 62 mg/dL (< 200) LDL Cholesterol 29 mg/dL (< 100) HDL Cholesterol < 5 mg/dL (40-59) Lipase 16 U/L (12-53) Vitamin B12 Level 2234 pg/mL (211-911) Vitamin D 25-Hydroxy 29.8 ng/mL (30.0-100) Thyroid Stimulating Hormone (TSH) 2.42 uIU/mL (0.55-4.78) Other Laboratory Tests 04/27/25 06:33 04/25/25 05:59 Brief Hx & Hospital Course: HISTORY OF PRESENT ILLNESS: This is a 69-year-old male with a complex medical history including 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 He presented with progressive shortness of breath (NYHA Class II to IV), productive cough, orthopnea, generalized weakness, and nausea. No fever or chest pain was reported. DISCHARGE SUMMARY: He was admitted for acute on chronic heart failure, cardiogenic shock and COPD exacerbation. Patient was started on Levophed, IV diuretic, and empiric antibiotic for cellulitis. Levophed was given until 04/24. EKGs showed AFib with RVR, but no significant ST or T-wave changes. Blood cultures grew Streptococcus dysgalactiae on 04/18, sensitive to vancomycin; subsequent cultures were negative.He was treated with IV vancomycin, cefepime, and fluconazole from 04/18 to 04/25. Respiratory symptoms were managed with breathing treatments. Leong catheter was placed for urinary management. On 04/27, patient was clinically and vitally stable, discharge plan discussed with the patient and the patient discharged to SNF for rehabilitation and physiotherapy. Discharge plannin minutes FINAL DIAGNOSIS: Cardiogenic shock, likely due to AFib/substance use disorder Possible septic shock, likely due to UTI/pneumonia Acute on chronic systolic heart failure Atrial fibrillation, with RVR NSTEMI, type 2 due to above Acquired Hypercoagulability Volume overload Severe TR COPD exacerbation Pneumonia, likely due to Gram-positive/Gram-negative Transaminitis Seven septic shock, due to sepsis Sepsis, likely due to pneumonia/cellulitis/bacteremia Bacteremia due to Streptococcus dysgalactiae Pneumonia Cellulitis of bilateral lower limb History of DVT and pulmonary emboli Ruled out pulmonary emboli and DVT Hyponatremia, likely due to heart failure Hypomagnesemia Intertrigo Cellulitis Multiple substance abuse disorder UDS positive for methamphetamine, phencyclidine and marijuana Current smoker Condition at Discharge: Good Final Diagnosis/Problems List Heart failure Discharge Disposition: Snf Facility Discharge Instruct/Medications Diet: Cardiac 2g Na,low cholest Activity: No Restrictions, As Tolerated Follow Up/Referral: Follow up with PCP within 1 week of the discharge. Follow up with Cardiology on outpatient basis. Medications: Per transfer paper Scheduled Apixaban Base (Eliquis), 5 MG PO BID Atorvastatin Calcium (Lipitor), 1 TAB PO QPM Empagliflozin (Jardiance), 10 MG PO DAILY Furosemide (Furosemide), 40 MG PO BID Metoprolol Succinate (Toprol Xl), 25 MG PO DAILY Sacubitril-Valsartan (Entresto 24-26 mg), 1 TAB PO BID Spironolactone (Aldactone), 25 MG PO DAILY Scheduled PRN Albuterol Sulfate (Ventolin), 2.5 MG NEB Q6HPRN PRN Discharge Statement: "Patient was advised to return to the ER or call 911 if any headaches, dizziness, shortness of breath, chest pain, abdominal pain, bleeding, fevers, or worsening of medical condition. Patient was counseled about treatment plan, medications, possible side effects, patientverbalized understanding. All questions were answered to the best of my ability. This discharge took greater then 30 minutes in planning, reviewing documentation, counseling the patient, and discussing with other team members." ASSESSMENT ASSESSMENT Assessment Heart failure EJMAL DAS [facility] Apr 27, 2025 19:31
== END 2025-04-27 12:51 | DRG 871 ==
LOC: EDBD 00:01 → ER 00:01 → OVERFLOW 02:41 → ICU WEST 07:58 → EAST 04-22 12:10 → DOU 04-22 12:30 → TELE-CENTR 04-25 15:35
PROVIDERS: ADMIT Internal Medicine; ATTEND Internal Medicine
PROC: 02H633Z Insertion of Infusion Device into Right Atrium, Percutaneous Approach (ICD-10-PCS; principal; 2025-04-19)
PROC: B548ZZA Ultrasonography of Superior Vena Cava, Guidance (ICD-10-PCS; 2025-04-19)
DX: A41.59 Other Gram-negative sepsis (principal); I21.A1 Myocardial infarction type 2; R57.0 Cardiogenic shock; R65.21 Severe sepsis with septic shock; N17.0 Acute kidney failure with tubular necrosis; I50.23 Acute on chronic systolic (congestive) heart failure; J15.69 Pneumonia due to other Gram-negative bacteria; J15.9 Unspecified bacterial pneumonia; J96.01 Acute respiratory failure with hypoxia; E87.1 Hypo-osmolality and hyponatremia; N39.0 Urinary tract infection, site not specified; L03.116 Cellulitis of left lower limb; L03.115 Cellulitis of right lower limb; F19.239 Other psychoactive substance dependence with withdrawal, unspecified; J44.1 Chronic obstructive pulmonary disease with (acute) exacerbation; I48.21 Permanent atrial fibrillation; J44.0 Chronic obstructive pulmonary disease with (acute) lower respiratory infection; D64.9 Anemia, unspecified; I48.91 Unspecified atrial fibrillation; E83.42 Hypomagnesemia; L30.4 Erythema intertrigo; F17.210 Nicotine dependence, cigarettes, uncomplicated; E80.6 Other disorders of bilirubin metabolism; R74.01 Elevation of levels of liver transaminase levels; E86.1 Hypovolemia; Z91.148 Patient's other noncompliance with medication regimen for other reason; Z79.899 Other long term (current) drug therapy
CPT/HCPCS: 36415; 36556; 36600; 71045; 71275; 80048; 80053; 80061; 80074; 80202; 80307; 80320; 81001; 82140; 82306; 82565; 82607; 82805; 83036; 83605; 83690; 83735; 83880; 84100; 84443; 84484; 85025; 85610; 85730; 87040; 87077; 87081; 87086; 87186; 87426; 87804; 93005; 93306; 93970; 94640; 97163; 99291; G0378; J0692; J2543